=== PATIENT | male | born 1985 | race Caucasian/White ===

== ENCOUNTER 2016-12-14 23:21 | Emergency (ER) | payer OTHER ==
--- NOTE | 2016-12-15 03:24 | ED ---
Upper Extremity Pain - HPI Summary HPI Summary: Pt here w/ Lt hand discoloration (purple/blue) and pain (intermittent burning, sharp pain) today. He's had intermittent swelling in B/L hands each morning over the past month but discoloration and pain are new today. Has been injecting suboxone into his brachial artery intermittently over the past few weeks - has a lump here now. Denies redness, fever, streaking from the area. No fever, chills, nausea or vomiting. He injects at the [facility] location in [place]. Also reports he injected into his wrist. 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 States he takes suboxone daily PO but when he gets a very strong craving to use, he injects it to curb his urge to use something stronger. 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 - Allergies/Home Medications Allergies/Adverse Reactions: Allergies Allergy/AdvReac Type Severity Reaction Status Date / Time No Known Allergies Allergy Verified 12/14/16 23:26 PMH/Surg Hx/FS Hx/Imm Hx Previously Healthy: Yes Endocrine/Hematology History: Denies: Hx Anticoagulant Therapy, Hx Blood Disorders, Hx Diabetes, Hx Thyroid Disease, Hx Unexplained Bleeding, Hx Coagulopothy, Autoimmune Disease Cardiovascular History: Denies: Hx Hypertension Respiratory History: Denies: Hx Asthma, Hx Chronic Obstructive Pulmonary Disease (COPD) GI History: Denies: Hx Ulcer - Surgical History Surgery Procedure, Year, and Place: pilonidal cyst 2007~ Infectious Disease History: No Infectious Disease History: Reports: 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 Denies: Hx Clostridium Difficile, Hx Hepatitis, Hx Human Immunodeficiency Virus (HIV), Hx Shingles, Hx Tuberculosis, Traveled Outside the US in Last 30 Days - Family History Known Family History: Positive: Unknown - Social History Occupation: Student Lives: With Family Alcohol Use: Rare Hx Substance Use: Yes - currently takes suboxone Substance Use Type: Reports: Heroin Substance Use Comment - Amount & Last Used: opiates Smoking Status (MU): Current Every Day Smoker Type: Cigarettes Length of Time of Smoking/Using Tobacco: 1/2 ppd Review of Systems Negative: Fever, Chills, Fatigue Negative: Chest Pain Negative: Shortness Of Breath Positive: no symptoms reported Musculoskeletal: Other - see HPI Skin: Other - see HPI Neurological: Other - see HPI Positive: Anxious All Other Systems Reviewed And Are Negative: Yes Physical Exam Triage Information Reviewed: Yes Vital Signs On Initial Exam: Initial Vitals Temp Pulse Resp BP Pulse Ox 97.4 F 67 16 147/78 100 12/14/16 23:23 12/14/16 23:23 12/14/16 23:23 12/14/16 23:23 12/14/16 23:23 Vital Signs Reviewed: Yes Appearance: Positive: Well-Appearing, Well-Nourished, Pain Distress Skin: Positive: Dry - Lt hand w/ blue discoloration - skin blanches and cap refill is < 2 secs; warm to touch after he's been rubbing it - cool to touch if he hasn't been rubbing it and then develops pallor of the middle and ring fingers Head/Face: Positive: Normal Head/Face Inspection Eyes: Positive: Normal, EOMI ENT: Positive: Hearing grossly normal, Pharynx normal Respiratory/Lung Sounds: Positive: Breath Sounds Present Cardiovascular: Positive: Pulses are Symmetrical in both Upper and Lower Extremities Musculoskeletal: Positive: Normal, Strength/ROM Intact Neurological: Positive: Normal, Sensory/Motor Intact, Alert, Oriented to Person Place, Time, CN Intact II-III Psychiatric: Positive: Anxious - but cooperative - [place] Coma Scale Coma Scale Total: 15 Diagnostics - Vital Signs Vital Signs Temp Pulse Resp BP Pulse Ox 12/15/16 01:05 77 96 12/15/16 01:03 140/90 12/14/16 23:23 97.4 F 67 16 147/78 100 - Laboratory Lab Statement: Any lab studies that have been ordered have been reviewed, and results considered in the medical decision making process. Course/Dx - Course Course Of Treatment: Pt appears to have vascular compromise in Left hand. After pt had vascular U/S here, spoke with Dr. Landrum (vascular) and Dr. Lima (ED) who are willing to accept. Pt declines ambulance and prefers to drive. Will sign AMA paperwork as this form of transport is not medically advised. Pt aware. - Diagnoses Provider Diagnoses: Vascular abnormality - Physician Notifications Discussed Care Of Patient With: Dr. Field Discharge - Discharge Plan Condition: Fair Disposition: AGAINST MEDICAL ADVICE Referrals: Maurizio Ray, CMO & PRESIDENT [Primary Care Provider] - Additional Instructions: You have vascular compromise of unknown etiology in your Left hand. It is advised that you go to [facility] by ambulance however you have declined and chosen to go by your personal vehicle. This is not advised but if you do transport yourself, please take all of your documentation so the providers at the ED may review them. You have been accepted by Dr. Lima in the ED and Dr. Landrum in the vascular department.
[2016-12-15 03:48] VITALS: BP 161/71
--- NOTE | 2016-12-15 07:31 | RAD ---
INDICATION: "Whitish" left fingers COMPARISON: None. TECHNIQUE: 2 views of the left hand were obtained. FINDINGS: The adequately corticated bones are in normal alignment. No significant focal osseous abnormality or fracture is seen. Joint spaces appear maintained. IMPRESSION: Normal left hand radiograph. Please correlate patient's history and physical to Raynaud's phenomenon as well as tobacco use.
--- NOTE | 2016-12-15 07:54 | RAD ---
INDICATION: Left upper medial arm lump status post injection injury. COMPARISON: There are no prior studies available for comparison. TECHNIQUE: Multiple real-time images of the left arm were obtained. FINDINGS: There is a hypodense heterogeneous mass present in the upper medial aspect of the arm approximately at the level of the proximal brachial artery measuring 3.9 x 1.6 x 1.0 cm in size. This is a nonspecific finding although suggestive of a hematoma given the patient's history. IMPRESSION: SOFT TISSUE MASS IN THE UPPER MEDIAL ARM SUGGESTIVE OF A HEMATOMA.
--- NOTE | 2016-12-15 07:58 | RAD ---
INDICATION: Injection injury and discolored and cool. COMPARISON: Correlation is made with a prior soft tissue ultrasound of the left upper extremity of the same day. TECHNIQUE: Multiple real-time, color flow and Doppler tracings of left upper extremity were obtained. FINDINGS: The peak systolic velocity in the left subclavian artery was 163 cm/s, left axillary artery 122 cm/s proximal brachial 109 cm/s, mid brachial 142 cm/s, distal brachial 130 cm/s, radial 89 cm/s and ulnar artery 83 cm/s. There are normal waveforms present. IMPRESSION: NO EVIDENCE FOR ARTERIAL NARROWING OR OCCLUSION IN THE LEFT UPPER EXTREMITY.
== END 2016-12-15 03:50 | disposition left against medical advice (07) ==
LOC: ED 23:21
DX: Q27.9 Congenital malformation of peripheral vascular system, unspecified (principal); Z53.21 Procedure and treatment not carried out due to patient leaving prior to being seen by health care provider
CPT/HCPCS: 99282

== ENCOUNTER 2017-02-06 17:26 | Emergency (ER) | payer OTHER ==
[2017-02-06] MEDS ORDERED: Morphine INJ* 4 MG/ML 1 ML SYRINGE IV ONE (20:14)
[2017-02-06] MEDS ORDERED: Piperac/Tazob 3.375 gm in NS* 3.375 GM/100 ML BAG IVPB ONE (20:14)
[2017-02-06] MEDS ORDERED: Ondansetron INJ* 2 MG/ML VIAL IV ONE (20:14)
--- NOTE | 2017-02-06 20:46 | RAD ---
Indication: Endocarditis, malaise. 2 views of the chest demonstrate no mediastinal shift. Heart is of normal size and configuration. Lung chacon demonstrate no pleural fluid, pneumonia or pneumothorax. IMPRESSION: No active cardiopulmonary disease is noted.
[2017-02-06] MEDS ORDERED: LORazepam INJ* 2 MG/ML 1 ML VIAL IV PUSH ONE (20:55)
[2017-02-06 22:54] LABS: Hematocrit 37 % (42-52); Hemoglobin 12.6 g/dl (14.0-18.0); Mean Corpuscular HGB Conc 34 g/dl (31-36); Mean Corpuscular Hemoglobin 30 pg (27-31); Mean Corpuscular Volume 89 fL (80-94); Mean Platelet Volume 9 um3 (7.4-10.4); Red Cell Distribution Width 14 % (10.5-15); White Blood Count 11.1 10^3/ul (3.5-10.8)
[2017-02-06 23:11] LABS: Albumin 3.8 g/dL (3.2-5.2); BUN/Creatinine Ratio 12.4 (8-20); C Reactive Protein 56.84 mg/L (< 5.00); Calcium 8.7 mg/dL (8.6-10.3); EGFR African American 129.1 (>60); EGFR Non-African American 100.4 (>60); Globulin 3.3 g/dL (2-4); Potassium 3.6 mmol/L (3.5-5.0); Total Bilirubin 0.6 mg/dL (0.2-1.0); Total Protein 7.1 g/dL (6.4-8.9); Troponin I 0.01 ng/mL (<0.04)
[2017-02-06 23:24] LABS: Urine Bacteria Absent (Absent); Urine Bilirubin Negative (Negative); Urine Glucose Negative (Negative); Urine Nitrite Negative (Negative)
[2017-02-07 00:34] VITALS: BP 133/73
--- NOTE | 2017-02-07 01:34 | ED ---
Charly Cervantes Alok, scribed for Royer Sanabria MD on 02/06/17 at 2116 . Skin Complaint - HPI Summary HPI Summary: 31M presents to the ED for hand edema bilaterally with necrosis of the left hand. Pt states what began as a purple color 6 weeks ago in his left hand digits progressed into a black necrosis presented at the ED today. Pt adds cold feeling in left hand and yellow discharge yesterday. Pt also presents with scabbing of the hands and feet. Pt notes previous hematoma in left wrist and h/ o illicit IV drug use in left wrist. Pt also states he fell and hit his head last night after taking x6 25 mg Benadryl. Pt denies fever, diaphoresis, or chills. Pt denies CP or SOB. Pt has been seen by hospitalst in [facility] and notes vascular specialist Dr. Moran. Pt hx includes h/o IV drug use. - History of Current Complaint Chief Complaint: EDGeneral Stated Complaint: HAND IS BLACK Hx Obtained From: Patient Onset/Duration: Started Weeks Ago, Atraumatic, Still Present Timing: Constant Onset Severity: Moderate Current Severity: Moderate Pain Intensity: 10 Pain Scale Used: 0-10 Numeric Skin Location: Hand Character: Swelling - Necrosis - Allergy/Home Medications Allergies/Adverse Reactions: Allergies Allergy/AdvReac Type Severity Reaction Status Date / Time No Known Allergies Allergy Verified 02/06/17 17:49 Home Medications: Home Medications Buprenorphine/Naloxone SL TAB* [Suboxone 8-2 mg SL TAB*] 1 tab SL DAILY [History Confirmed 02/06/17] Gabapentin CAP(*) [Neurontin 300 CAP(*)] 900 mg PO TID 02/06/17 [History Confirmed 02/06/17] PMH/Surg Hx/FS Hx/Imm Hx Endocrine/Hematology History: Denies: Hx Anticoagulant Therapy, Hx Blood Disorders, Hx Diabetes, Hx Thyroid Disease, Hx Unexplained Bleeding Cardiovascular History: Denies: Hx Hypertension Respiratory History: Denies: Hx Asthma, Hx Chronic Obstructive Pulmonary Disease (COPD) GI History: Denies: Hx Ulcer - Surgical History Surgery Procedure, Year, and Place: pilonidal cyst 2007~ Infectious Disease History: No Infectious Disease History: Reports: 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 Denies: Hx Clostridium Difficile, Hx Hepatitis, Hx Human Immunodeficiency Virus (HIV), Hx Shingles, Hx Tuberculosis, Traveled Outside the [place] in Last 30 Days - Family History Known Family History: Negative: Hypertension - Social History Alcohol Use: Rare Hx Substance Use: Yes - currently takes suboxone Substance Use Type: Reports: Heroin, Other Substance Use Comment - Amount & Last Used: opiates, mayra, suboxone Smoking Status (MU): Current Every Day Smoker Type: Cigarettes Length of Time of Smoking/Using Tobacco: 1/2 ppd Review of Systems Negative: Fever, Chills, Skin Diaphoresis Negative: Sore Throat Negative: Chest Pain Negative: Shortness Of Breath, Cough Negative: Abdominal Pain, Vomiting, Nausea Negative: dysuria, hematuria Positive: Edema - hands bilaterally Positive: Other - Finger necrosis. Negative: Rash Neurological: Other - Negative: Dizziness All Other Systems Reviewed And Are Negative: Yes Physical Exam - Summary Physical Exam Summary: Constitutional: Well-developed, Well-nourished, Alert. (-) Distressed Skin: Necrosis left hand middle finger, ring finger, and pinky finger. Hyperemia skin open down to PIP joint on middle finger left hand with splinter and hemorrhages. Petechia on dosal appendage on both hands. HENT: Normocephalic; Atraumatic Eyes: Conjunctiva normal Neck: Musculoskeletal ROM normal neck. (-) JVD, (-) Stridor, (-) Tracheal deviation Cardio: Rhythm regular, rate normal, Heart sounds normal; Intact distal pulses; The pedal pulses are 2+ and symmetric. Radial pulses are 2+ and symmetric. (-) Murmur Pulmonary/Chest wall: Effort normal. (-) Respiratory distress, (-) Wheezes, (-) Rales Abd: Soft, (-) Tenderness, (-) Distension, (-) Guarding, (-) Rebound Musculoskeletal: Necrosis left hand middle finger, ring finger, and pinky finger. Hyperemia skin open down to PIP joint on middle finger left hand with splinter and hemorrhages. Petechia on dosal appendage on both hands. Lymph: (-) Cervical adenopathy Neuro: Alert, Oriented x3 Psych: Mood and affect Normal Triage Information Reviewed: Yes Vital Signs On Initial Exam: Initial Vitals Temp Pulse Resp BP Pulse Ox 99.0 F 86 16 118/96 99 02/06/17 17:28 02/06/17 17:28 02/06/17 17:28 02/06/17 17:28 02/06/17 17:28 Vital Signs Reviewed: Yes - [place] Coma Scale Coma Scale Total: 15 Diagnostics - Vital Signs Vital Signs Temp Pulse Resp BP Pulse Ox 02/06/17 17:32 98.6 F 86 20 118/96 99 02/06/17 17:28 99.0 F 86 16 118/96 99 - Laboratory Lab Results: Lab Results 02/06/17 02/06/17 02/06/17 Range/Units 22:35 22:35 22:35 WBC (3.5-10.8) 10^3/ul RBC (4.0-5.4) 10^6/ul Hgb (14.0-18.0) g/dl Hct (42-52) % MCV (80-94) fL MCH (27-31) pg MCHC (31-36) g/dl RDW (10.5-15) % Plt Count (150-450) 10^3/ul MPV (7.4-10.4) um3 Neut % (Auto) (38-83) % Lymph % (Auto) (25-47) % [place] % (Auto) (1-9) % Eos % (Auto) (0-6) % Baso % (Auto) (0-2) % Absolute Neuts (auto) (1.5-7.7) 10^3/ul Absolute Lymphs (auto) (1.0-4.8) 10^3/ul Absolute Monos (auto) (0-0.8) 10^3/ul Absolute Eos (auto) (0-0.6) 10^3/ul Absolute Basos (auto) (0-0.2) 10^3/ul Absolute Nucleated RBC 10^3/ul Nucleated RBC % INR (Anticoag Therapy) 0.96 (0.89-1.11) APTT 31.4 (26.0-36.3) seconds Sodium 137 (133-145) mmol/L Potassium 3.6 (3.5-5.0) mmol/L Chloride 100 L (101-111) mmol/L Carbon Dioxide 30 (22-32) mmol/L Anion Gap 7 (2-11) mmol/L BUN 11 (6-24) mg/dL Creatinine 0.89 (0.67-1.17) mg/dL Est GFR ( Amer) 129.1 (>60) Est GFR (Non-Af Amer) 100.4 (>60) BUN/Creatinine Ratio 12.4 (8-20) Glucose 125 H (70-100) mg/dL Lactic Acid 1.6 (0.5-2.0) mmol/L Calcium 8.7 (8.6-10.3) mg/dL Total Bilirubin 0.60 (0.2-1.0) mg/dL AST 17 (13-39) U/L ALT 16 (7-52) U/L Alkaline Phosphatase 82 (34-104) U/L Troponin I 0.01 (<0.04) ng/mL C-Reactive Protein 56.84 H (< 5.00) mg/L Total Protein 7.1 (6.4-8.9) g/dL Albumin 3.8 (3.2-5.2) g/dL Globulin 3.3 (2-4) g/dL Albumin/Globulin Ratio 1.2 (1-3) Urine Color Urine Appearance Urine pH (5-9) Ur Specific [place] (1.010-1.030) Urine Protein (Negative) Urine Ketones (Negative) Urine Blood (Negative) Urine Nitrate (Negative) Urine Bilirubin (Negative) Urine Urobilinogen (Negative) Ur Leukocyte Esterase (Negative) Urine WBC (Auto) (Absent) Urine RBC (Auto) (Absent) Calcium Oxalate Crystal (Absent) Urine Bacteria (Absent) Urine Glucose (Negative) 02/06/17 02/06/17 Range/Units 22:35 22:45 WBC 11.1 H (3.5-10.8) 10^3/ul RBC 4.20 (4.0-5.4) 10^6/ul Hgb 12.6 L (14.0-18.0) g/dl Hct 37 L (42-52) % MCV 89 (80-94) fL MCH 30 (27-31) pg MCHC 34 (31-36) g/dl RDW 14 (10.5-15) % Plt Count 234 (150-450) 10^3/ul MPV 9 (7.4-10.4) um3 Neut % (Auto) 69.7 (38-83) % Lymph % (Auto) 18.5 L (25-47) % Winston % (Auto) 6.6 (1-9) % Eos % (Auto) 4.0 (0-6) % Baso % (Auto) 1.2 (0-2) % Absolute Neuts (auto) 7.7 (1.5-7.7) 10^3/ul Absolute Lymphs (auto) 2.1 (1.0-4.8) 10^3/ul Absolute Monos (auto) 0.7 (0-0.8) 10^3/ul Absolute Eos (auto) 0.4 (0-0.6) 10^3/ul Absolute Basos (auto) 0.1 (0-0.2) 10^3/ul Absolute Nucleated RBC 0.04 10^3/ul Nucleated RBC % 0.4 INR (Anticoag Therapy) (0.89-1.11) APTT (26.0-36.3) seconds Sodium (133-145) mmol/L Potassium (3.5-5.0) mmol/L Chloride (101-111) mmol/L Carbon Dioxide (22-32) mmol/L Anion Gap (2-11) mmol/L BUN (6-24) mg/dL Creatinine (0.67-1.17) mg/dL Est GFR ( Amer) (>60) Est GFR (Non-Af Amer) (>60) BUN/Creatinine Ratio (8-20) Glucose (70-100) mg/dL Lactic Acid (0.5-2.0) mmol/L Calcium (8.6-10.3) mg/dL Total Bilirubin (0.2-1.0) mg/dL AST (13-39) U/L ALT (7-52) U/L Alkaline Phosphatase (34-104) U/L Troponin I (<0.04) ng/mL C-Reactive Protein (< 5.00) mg/L Total Protein (6.4-8.9) g/dL Albumin (3.2-5.2) g/dL Globulin (2-4) g/dL Albumin/Globulin Ratio (1-3) Urine Color Yellow Urine Appearance Clear Urine pH 5.0 (5-9) Ur Specific [place] 1.023 (1.010-1.030) Urine Protein Negative (Negative) Urine Ketones Negative (Negative) Urine Blood 1+ H (Negative) Urine Nitrate Negative (Negative) Urine Bilirubin Negative (Negative) Urine Urobilinogen Negative (Negative) Ur Leukocyte Esterase Negative (Negative) Urine WBC (Auto) Trace(0-5/hpf) (Absent) Urine RBC (Auto) 2+(6-10/hpf) H (Absent) Calcium Oxalate Crystal Present H (Absent) Urine Bacteria Absent (Absent) Urine Glucose Negative (Negative) Result Diagrams: 02/06/17 22:35 02/06/17 22:35 Lab Statement: Any lab studies that have been ordered have been reviewed, and results considered in the medical decision making process. - Radiology CXR Xray Interpretation: Positive (See Comments) - No active cardiopulmonary disease noted. Radiology Interpretation Completed By: Radiologist - EKG 2114 Cardiac Rate: NL - 87 bpm EKG Rhythm: Sinus Rhythm EKG Interpretation: No STEMI Course/Dx - Course Course Of Treatment: Spoke with Dr. Morris (Vascular at [facility]) and. Dr. Balbuena (Hospitalist at [facility]). Accepts pt for transfer. Understands difficult vascular access. Confirms PICC line capability at [facility]. Understands vitals stable. - Diagnoses Provider Diagnoses: Endocarditis, Septic embolism, Finger necrosis - Physician Notifications Discussed Care Of Patient With: Dr. Morris (Vascular at [facility]) @ 2028 - Discussed pt hx and condition. Dr. Balbuena (Hospitalist at [facility]) @ 2044 - Accepts pt for transfer. Understands difficult vascular access. Confirms PICC line capability at [facility]. Understands vitals stable. Discharge - Discharge Plan Condition: Stable Disposition: [facility] FAC Discharge Disposition Comment: transfer to [facility] Referrals: Maurizio Ray, CREDIT RESOLUTION REPRESENTATIVE [Primary Care Provider] - The documentation as recorded by the Charly guerra Alok accurately reflects the service I personally performed and the decisions made by , Royer Sanabria MD.
--- NOTE | 2017-02-08 08:52 | PN ---
Progress Note - Progress Note Note: PT blood culture grew S aureus. Pt transferred to [facility] where could get PICC line for treatment of sepsis. no further action needed.
== END 2017-02-07 00:31 | disposition short-term general hospital (02) ==
LOC: ED 17:26
DX: I76 Septic arterial embolism (principal); I38 Endocarditis, valve unspecified; I96 Gangrene, not elsewhere classified; I74.9 Embolism and thrombosis of unspecified artery; R60.0 Localized edema; F17.210 Nicotine dependence, cigarettes, uncomplicated
CPT/HCPCS: 36415; 71020; 80053; 81003; 81015; 83605; 84484; 85025; 85610; 85730; 86140; 87040; 87077; 87150; 87186; 87205; 93005; 96374; 96375; 99284; J2060; J2405; J2543

== ENCOUNTER 2017-03-09 07:30 | Day surgery (SDC) | payer OTHER ==
[~2017-03-09 07:30] MED LIST: Buffered Lidocaine 0.9% SYRIN* 5 ML/SYR SYRINGE INTRADERM ONE; Dexamethasone IV* 4 MG/ML 1 ML (4 MG) IV SLOW PU ONE; Famotidine IV* 10 MG/ML 2 ML (20 mg) IV ONE
[2017-03-09] MEDS ORDERED: ceFAZolin 2 GM PREMIX(*) 0 GM/0 ML BAG IVPB ONE (07:52)
[2017-03-09] MEDS ORDERED: Famotidine IV* 10 MG/ML 2 ML (20 mg) ONE (07:59)
[2017-03-09] MEDS ORDERED: Dexamethasone IV* 4 MG/ML 1 ML (4 MG) ONE (07:59)
[2017-03-09] MEDS ORDERED: ceFAZolin 2 GM PREMIX(*) 2 GM/50 ML BAG IVPB ONE (07:59)
[2017-03-09] MEDS ORDERED: Midazolam* 1 MG/ML 2 ML VIAL (2 MG) ONE (08:24)
[2017-03-09] MEDS ORDERED: Bupivacaine 0.25% SDV* 30 ML ONE (08:49)
[2017-03-09] MEDS ORDERED: Lidocaine 2% PF * 5 ML VIAL ONE (09:38)
[2017-03-09] MEDS ORDERED: Propofol* 10 MG/ML 20 ML BTL IV PUSH ONE (09:38)
[2017-03-09] MEDS ORDERED: Ketorolac INJ* 30 MG/ML 1 ML VIAL ONE (09:39)
[2017-03-09] MEDS ORDERED: Phenylephrine IV* 40 MCG/ML 10 ML SYRINGE ONE (09:41)
[2017-03-09] MEDS ORDERED: Ondansetron INJ* 2 MG/ML VIAL IV PRN (10:16)
[2017-03-09] MEDS ORDERED: oxyCODONE/Acetamin 5/325 MG* TAB ONE (11:15)
[2017-03-09 11:48] VITALS: BP 124/84
--- NOTE | 2017-03-10 03:55 | OP ---
DATE OF OPERATION: 03/09/17 [facility] DATE OF : 87 SURGEON: Duncan Gibson MD COMMUNITY RELATIONS REPRESENTATIVE: DEBORA Barcenas. An executive staff assistant was needed for the entirety of this case to aid with retraction. ANESTHESIOLOGIST: Dr. Chetan Hernandez. ANESTHESIA: General. PRE-OP DIAGNOSES: 1. 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 2. Developing left small fingertip very distal necrosis. POST-OP DIAGNOSES: 1. 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 2. Developing left small fingertip very distal necrosis. OPERATIVE PROCEDURE: 1. Left middle finger partial amputation trans middle phalanx with biopsies of the radial and ulnar digital arteries. 2. Left ring finger trans middle phalanx partial amputation with biopsies of the radial and ulnar digital arteries. INDICATIONS: Angel Luis is a 31-year-old male with a history of significant IV drug use as well as cocaine. He was injecting his Suboxone about 3 months ago. He began to develop necrosis in the middle and ring fingers. He has been admitted to [facility] a couple of times, have done CTAs and he has had multiple ultrasounds through a couple of hospital admissions. The left middle and ring fingers have gone on to nicely demarcate. He was seen by vascular surgeon, Dr. Moran, who thought this is likely related to Buerger's disease or possibly Raynaud's. He is a smoker. He has more recently started to develop a bit of duskiness at the tip of the small finger; this is a very small area. He is having extreme pain and difficulty with left middle and ring fingers. We talked about treatment options including a potential sympathectomy. Ultimately it has been difficult to get him into the office. He did come back on Thursday, 3 days ago and wanted the 2 fingers off. We talked about the surgery and the expected course, risks and benefits. He wanted to proceed. ESTIMATED BLOOD LOSS: 2 mL. COMPLICATIONS: None. FINDINGS: The ulnar digital artery at the level of the amputation on the ring finger was coagulated. The rest of the digital arteries looked certainly not healthy, but patent. DESCRIPTION OF PROCEDURE: Angel Luis was seen in the preoperative holding area. The correct side, site, and procedure were identified. We came back to the operating room where anesthesia was induced. The arm was prepped with Betadine scrub and draped in the standard fashion. A formal time-out was performed. The arm was exsanguinated with the Esmarch and tourniquet inflated 250 mmHg. I marked out my flaps with the marking pen. Dissection was then carried down circumferentially taking care to leave the digital nerves and arteries intact. I began on the middle finger first. The neurovascular bundles radially and ulnarly were dissected out. The digital nerve was pulled down distally and then cut sharply, proximally allowing both nerves to retract back up into the proximal finger. The digital arteries were freed up of their perivascular tissue and then at the level of the amputation about a 1 cm piece was taken radially and ulnarly and sent off to the pathologist for wall thickening and inflammatory cells. I then completed the rest of the soft tissue release circumferentially. The bone cutter was used to amputate the middle phalanx. The terminal extensor tendon was debrided back. The FTP tendon was allowed to retract back proximally. I took care not to disturb the FDS insertion. The flexor tendon sheath was debrided back just a little bit. I then contoured my flaps and the skin flaps of the left middle finger were closed with 4-0 nylon simple interrupted sutures taking care to avoid dog ears and trim them back as needed. I then completed the amputation and the biopsies of the radial and ulnar digital arteries in the left ring finger in similar fashion. Again, about a 1 cm segment of the radial and ulnar digital arteries were sent for biopsy. The level of the amputation was a bit more distal on the ring finger as there is more soft tissue present for coverage. Again, it was a bit more distal, so was not as much of a concern, but took care to preserve the attachments of the FDS tendon. Once I had completed the amputation and contoured the flaps, the skin was closed with 4-0 nylon suture. Prior to closure both wounds have been copiously irrigated. After the wounds were closed, the tourniquet was deflated and the flaps pinked up immediately. The wounds were dressed with Xeroform, some ribboned 1 inch Nicolasa and then loose Coban dressing to both fingers. Prior to placing the dressings, I performed digital blocks to the left ring and middle fingers with 0.25 plain Marcaine. He was then woken up taken to the recovery room in stable condition. [id number]/[facility] #: [id number] ROSA
== END 2017-03-09 11:30 | disposition home or self-care (01) ==
LOC: OREAST 07:30
PROVIDERS: ATTEND Orthopaedic Surgery Hand Surgery
PROC: 0X6R0Z2 Detachment at Left Middle Finger, Mid, Open Approach (ICD-10-PCS; 2017-03-09)
PROC: 0X6T0Z2 Detachment at Left Ring Finger, Mid, Open Approach (ICD-10-PCS; principal; 2017-03-09 08:30)
DX: M87.045 Idiopathic aseptic necrosis of left finger(s) (principal); F17.210 Nicotine dependence, cigarettes, uncomplicated; I73.1 Thromboangiitis obliterans [Buerger's disease]
CPT/HCPCS: 88305; 88311; A9270-GY; J0690; J1100; J1885; J2250; J2704

== ENCOUNTER 2017-03-24 13:17 | Emergency (ER) | payer OTHER | END 2017-03-24 15:40 | disposition left against medical advice (07) | LOC: UCEAST 13:17 | DX: T14.8 Other injury of unspecified body region (principal); X58.XXXD Exposure to other specified factors, subsequent encounter; Z53.21 Procedure and treatment not carried out due to patient leaving prior to being seen by health care provider ==

== ENCOUNTER 2017-06-08 15:01 | Emergency (ER) | payer OTHER ==
[2017-06-08 15:25] VITALS: BP 117/64
== END 2017-06-08 15:37 | disposition left against medical advice (07) ==
LOC: ED 15:01
DX: M25.521 Pain in right elbow (principal); Z53.21 Procedure and treatment not carried out due to patient leaving prior to being seen by health care provider

== ENCOUNTER 2017-10-15 00:38 | Emergency (ER) | payer OTHER ==
[2017-10-15] MEDS ORDERED: Bupivacaine 0.25% W/EPI* 50 ML VIAL INJ ONE (01:33)
[2017-10-15] MEDS ORDERED: Cyclobenzaprine TAB* 10 MG PO ONE (01:34)
[2017-10-15] MEDS ORDERED: Naproxen TAB* 250 MG PO ONE (01:34)
[2017-10-15] MEDS ORDERED: Bupivacaine 0.5% SDV PF* 10-30ML VIAL INJ ONE (01:40)
[2017-10-15 02:08] VITALS: BP 128/77
--- NOTE | 2017-10-15 04:17 | ED ---
Anthony Cervantes Julia, scribed for Dimitri Abbott MD on 10/15/17 at 0150 . Complex/Multi-Sys Presentation - HPI Summary HPI Summary: This patient is a 32 year old M presenting to [facility] accompanied by and child with a chief complaint of non-radiating back pain for the past ten days. Patient denies urinary or bowel symptoms, numbness and weakness in groin, difficulty walking. The patient rates the pain 8/10 in severity. Pain relieved with pressure. Patient has hx of chronic back pain. Pt has been taking Tylenol and Ibuprofen for the pain. Patient has previous IV drug use. - History Of Current Complaint Chief Complaint: EDBackInjuryPain Time Seen by Provider: 10/15/17 01:26 Hx Obtained From: Patient Onset/Duration: Lasting Weeks Timing: Constant Location: Pain At: - low back Alleviating Factor(s): pressure - Allergies/Home Medications Allergies/Adverse Reactions: Allergies Allergy/AdvReac Type Severity Reaction Status Date / Time No Known Allergies Allergy Verified 10/15/17 00:44 PMH/Surg Hx/FS Hx/Imm Hx Endocrine/Hematology History: Denies: Hx Anticoagulant Therapy, Hx Blood Disorders, Hx Diabetes, Hx Thyroid Disease, Hx Unexplained Bleeding Cardiovascular History: Denies: Hx Hypertension Respiratory History: Denies: Hx Asthma, Hx Chronic Obstructive Pulmonary Disease (COPD) GI History: Denies: Hx Ulcer Psychiatric History: Reports: Hx Anxiety - Surgical History Surgery Procedure, Year, and Place: pilonidal cyst 2007~ Hx Anesthesia Reactions: No Infectious Disease History: Yes Infectious Disease History: Reports: Hx Hepatitis, 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 Denies: Hx Clostridium Difficile, Hx Human Immunodeficiency Virus (HIV), Hx Shingles, Hx Tuberculosis, Traveled Outside the [place] in Last 30 Days - Family History Known Family History: Negative: Hypertension - Social History Alcohol Use: None Hx Substance Use: Yes - currently takes suboxone Substance Use Type: Reports: Cocaine Substance Use Comment - Amount & Last Used: week ago Smoking Status (MU): Heavy Every Day Tobacco Smoker Type: Cigarettes Length of Time of Smoking/Using Tobacco: 19 years Have You Smoked in the Last Year: Yes Review of Systems Gastrointestinal: Negative Positive: no symptoms reported Neurological: Negative - difficulty walking Negative: Weakness, Numbness All Other Systems Reviewed And Are Negative: Yes Physical Exam - Summary Physical Exam Summary: Appearance: Well appearing, no pain distress Skin: warm, dry, reflects adequate perfusion Head/face: normal Eyes: EOMI, MAILE ENT: normal Neck: supple, non-tender Respiratory: CTA, breath sounds present Cardiovascular: RRR, pulses symmetrical Abdomen: non-tender, soft Bowel: present Musculoskeletal: bilateral Para lumbar tenderness with spasm, 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 The med was massaged thru the tissues and provided total pain relief. He tolerated this well without complications. Diagnostics - Vital Signs Vital Signs Temp Pulse Resp BP Pulse Ox 10/15/17 00:40 97.5 F 76 16 127/54 99 - Laboratory Lab Statement: Any lab studies that have been ordered have been reviewed, and results considered in the medical decision making process. Complex Multi-Symp Course/Dx Course Of Treatment: Pt presents with non-radiating back pain for the past ten days. Patient denies urinary or bowel symptoms, numbness and weakness in groin, difficulty walking. Patient has hx of chronic back pain. Pt given Naproxen, Flexeril, an Marcaine injection with total relief.. - Diagnoses Differential Diagnoses/HQI/PQRI: Other - lumbar pain/spasm, lumbar disc dz, cauda/conus synd. Provider Diagnoses: Low back strain Discharge - Discharge Plan Condition: Good Disposition: HOME Prescriptions: Cyclobenzaprine TAB* [Flexeril 10 MG TAB*] 10 mg PO TID PRN #20 tab PRN Reason: Pain Naproxen Sodium [Naproxen Sodium 500 MG TAB] 500 mg PO BID PRN #10 tab PRN Reason: Pain Patient Education Materials: Low Back Strain (ED) Referrals: [facility]FERR[facility] [Outside] Additional Instructions: ice, stretching. director of managed care may help. Return if worse, numbness/weakness , trouble with bowel or bladder or other concerns. The documentation as recorded by the Anthony guerra Julia accurately reflects the service I personally performed and the decisions made by , Dimitri Abbott MD.
== END 2017-10-15 02:10 | disposition home or self-care (01) ==
LOC: ED 00:38
DX: S39.012A Strain of muscle, fascia and tendon of lower back, initial encounter (principal); M54.9 Dorsalgia, unspecified; F17.210 Nicotine dependence, cigarettes, uncomplicated; X58.XXXA Exposure to other specified factors, initial encounter; Y92.9 Unspecified place or not applicable
CPT/HCPCS: 99282; A9270-GY

== ENCOUNTER 2017-11-02 03:53 | Emergency (ER) | payer OTHER ==
[2017-11-02] MEDS ORDERED: oxyCODONE/Acetamin 5/325 MG* TAB PO ONE (04:14)
[2017-11-02] MEDS ORDERED: Ketorolac INJ* 60 MG/2 ML VIAL IM ONE (04:14)
[2017-11-02] MEDS ORDERED: Clindamycin CAP* 150 MG PO ONE (04:54)
--- NOTE | 2017-11-02 05:02 | ED ---
Landon Cervantes Thomas, scribed for Oliva Casarez MD on 11/02/17 at 0416 . Throat Pain/Nasal Congestion - HPI Summary HPI Summary: The patient presents with left-sided dental pain. The pain is described as shooting. He removed a portion of his tooth at home. He treated the pain with ibuprofen prior to arrival. - History of Current Complaint Chief Complaint: EDDentalPain Time Seen by Provider: 11/02/17 04:11 Hx Obtained From: Patient Onset/Duration: Still Present Severity: Moderate Associated Signs And Symptoms: Positive: Negative Cough: None Related History: Smoking - Allergies/Home Medications Allergies/Adverse Reactions: Allergies Allergy/AdvReac Type Severity Reaction Status Date / Time No Known Allergies Allergy Verified 11/02/17 03:59 PMH/Surg Hx/FS Hx/Imm Hx Endocrine/Hematology History: Denies: Hx Anticoagulant Therapy, Hx Blood Disorders, Hx Diabetes, Hx Thyroid Disease, Hx Unexplained Bleeding Cardiovascular History: Denies: Hx Hypertension Respiratory History: Denies: Hx Asthma, Hx Chronic Obstructive Pulmonary Disease (COPD) GI History: Denies: Hx Ulcer Psychiatric History: Reports: Hx Anxiety - Surgical History Surgery Procedure, Year, and Place: pilonidal cyst 2007~ Hx Anesthesia Reactions: No Infectious Disease History: No Infectious Disease History: Reports: Hx Hepatitis, 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 Denies: Hx Clostridium Difficile, Hx Human Immunodeficiency Virus (HIV), Hx Shingles, Hx Tuberculosis, Traveled Outside the [place] in Last 30 Days - Family History Known Family History: Negative: Hypertension - Social History Alcohol Use: None Hx Substance Use: Yes - currently takes suboxone Substance Use Type: Reports: Cocaine Substance Use Comment - Amount & Last Used: week ago Smoking Status (MU): Heavy Every Day Tobacco Smoker Type: Cigarettes Length of Time of Smoking/Using Tobacco: 19 years Have You Smoked in the Last Year: Yes Review of Systems Negative: Fever Positive: Dental Pain All Other Systems Reviewed And Are Negative: Yes Physical Exam - Summary Physical Exam Summary: VITAL SIGNS: Reviewed. GENERAL: Patient is a well-developed and nourished male who is lying comfortable in the stretcher. Patient is not in any acute respiratory distress. HEAD AND FACE: No signs of trauma. No ecchymosis, hematomas or skull depressions. No sinus tenderness. EYES: PERRLA, EOMI x 2, No injected conjunctiva, no nystagmus. EARS: Hearing grossly intact. Ear canals and tympanic membranes are within normal limits. MOUTH: Oropharynx within normal limits. There is a decayed and broken left upper molar with surrounding erythema and tenderness. NECK: Supple, trachea is midline, no adenopathy, no JVD, no carotid bruit, no c- spine tenderness, neck with full ROM. CHEST: Symmetric, no tenderness at palpation LUNGS: Clear to auscultation bilaterally. No wheezing or crackles. CVS: Regular rate and rhythm, S1 and S2 present, no murmurs or gallops appreciated. ABDOMEN: Soft, non-tender. No signs of distention. No rebound no guarding, and no masses palpated. Bowel sounds are normal. EXTREMITIES: FROM in all major joints, no edema, no cyanosis or clubbing. NEURO: Alert and oriented x 3. No acute neurological deficits. Speech is normal and follows commands. SKIN: Dry and warm Triage Information Reviewed: Yes Vital Signs On Initial Exam: Initial Vitals Temp Pulse Resp BP Pulse Ox 97.8 F 71 16 141/83 98 11/02/17 03:55 11/02/17 03:55 11/02/17 03:55 11/02/17 03:55 11/02/17 03:55 Diagnostics - Vital Signs Vital Signs Temp Pulse Resp BP Pulse Ox 11/02/17 03:55 97.8 F 71 16 141/83 98 - Laboratory Lab Statement: Any lab studies that have been ordered have been reviewed, and results considered in the medical decision making process. EENT Course/Dx - Course Assessment/Plan: The patient is a 34 year old male presenting with dental pain. Patient was given antibiotics and pain medication. The patient will follow up at his dentist today. - Diagnoses Provider Diagnoses: Gingivitis, Tooth decay Discharge - Discharge Plan Condition: Stable Disposition: HOME Patient Education Materials: Gingivitis (ED), Toothache (ED), Cavity Preventive (For the teeth or gums) Referrals: [facility]IAN REFERRAL [Outside] - 11/02/17 Additional Instructions: Call your dentist today for an appointment. If you do not have one, you can use the [facility] physician referral service to find one and make an appointment. Return to the emergency department for any new or worsening symptoms. The documentation as recorded by the Landon guerra Thomas accurately reflects the service I personally performed and the decisions made by me, Oliva Casarez MD.
[2017-11-02 05:07] VITALS: BP 132/86
--- NOTE | 2017-11-02 08:43 | PN ---
Progress Note - Progress Note Date of Service: 11/01/17 Note: Patient was prescribed opioids at last night's visit for dental pain [facility] called this morning stating patient is currently taking Suboxone with her drug history I have made a verbal order to cancel the opioid prescription for this individual
== END 2017-11-02 05:05 | disposition home or self-care (01) ==
LOC: ED 03:53
DX: K05.10 Chronic gingivitis, plaque induced (principal); K02.9 Dental caries, unspecified
CPT/HCPCS: 96372; 99282; A9270-GY; J1885

== ENCOUNTER 2018-03-21 07:09 | Emergency (ER) | payer OTHER ==
[2018-03-21] MEDS ORDERED: NS 0.9% 1000 ML* 1,000 ML IV ONE (07:46)
[2018-03-21] MEDS ORDERED: ceFAZolin 1 GM in Dextrose (*) 1 GM/50 ML BAG IVPB ONE (07:46)
--- NOTE | 2018-03-21 09:10 | ED ---
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 He denies IV drug use 2 years, but continues to use cocaine. Symptoms began 4 days ago after he felt he may have been bitten by an insect. Despite his Buerger's disease, he is an every day heavy smoker. Currently on Suboxone 12 mg twice daily. Denies any fevers, sweats, chills, however he endorses extreme fatigue due to not sleeping secondary to uncontrolled pain. - History of Current Complaint Chief Complaint: EDExtremityLower Time Seen by Provider: 03/21/18 07:15 Stated Complaint: RT LEG PAIN Hx Obtained From: Patient Hx From Patient Unobtainable Due To: Other - obtunded most likely secondary to suboxone use vs. other drug use Onset/Duration: Started Days Ago - 4 days aquino Timing: Constant Onset Severity: Moderate Current Severity: Moderate Pain Intensity: 4 Pain Scale Used: 0-10 Numeric Skin Location: Discrete - right lower extremity anteriorly Character: Swelling, Pain, Redness, Painful Aggravating Symptom(s): Touch Alleviating Symptom(s): Nothing Associated Signs & Symptoms: Tenderness Related History: Insect Bite/Sting - possible - Allergy/Home Medications Allergies/Adverse Reactions: Allergies Allergy/AdvReac Type Severity Reaction Status Date / Time No Known Allergies Allergy Verified 03/21/18 07:14 PMH/Surg Hx/FS Hx/Imm Hx Previously Healthy: Yes Endocrine/Hematology History: Denies: Hx Anticoagulant Therapy, Hx Blood Disorders, Hx Diabetes, Hx Thyroid Disease, Hx Unexplained Bleeding Cardiovascular History: Denies: Hx Hypertension Respiratory History: Denies: Hx Asthma, Hx Chronic Obstructive Pulmonary Disease (COPD) GI History: Denies: Hx Ulcer Psychiatric History: Reports: Hx Anxiety - Surgical History Surgery Procedure, Year, and Place: pilonidal cyst 2008~ Hx Anesthesia Reactions: No - Immunization History Immunizations Up to Date: Unable to Obtain/Confirm Infectious Disease History: No Infectious Disease History: Reports: Hx Hepatitis, 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 Denies: Hx Clostridium Difficile, Hx Human Immunodeficiency Virus (HIV), Hx Shingles, Hx Tuberculosis, Traveled Outside the [place] in Last 30 Days - Family History Known Family History: Positive: Unknown Negative: Hypertension - Social History Occupation: Employed Part-time Lives: With Family Alcohol Use: None Hx Substance Use: Yes - currently takes suboxone Substance Use Type: Reports: Cocaine Substance Use Comment - Amount & Last Used: week ago Smoking Status (MU): Heavy Every Day Tobacco Smoker Type: Cigarettes Length of Time of Smoking/Using Tobacco: 19 years Have You Smoked in the Last Year: Yes Review of Systems Positive: Fatigue. Negative: Fever, Chills, Skin Diaphoresis Negative: Palpitations, Chest Pain Negative: Shortness Of Breath, Cough Genitourinary: Negative Positive: no symptoms reported, see HPI, incontinence Positive: Other - erythema to the R lower extremity Neurological: Negative All Other Systems Reviewed And Are Negative: Yes Physical Exam Triage Information Reviewed: Yes Vital Signs On Initial Exam: Initial Vitals Temp Pulse Resp BP Pulse Ox 99.9 F 82 16 119/78 95 03/21/18 07:11 03/21/18 07:11 03/21/18 07:11 03/21/18 07:11 03/21/18 07:11 Vital Signs Reviewed: Yes Appearance: Positive: Pain Distress Skin: Positive: Skin Color Reflects Adequate Perfusion, Other - erythema and warmth to the anterior lower extremity Head/Face: Positive: Normal Head/Face Inspection Eyes: Positive: EOMI, MAILE, Conjunctiva Clear Neck: Positive: Supple, Nontender, No Lymphadenopathy Respiratory/Lung Sounds: Positive: Clear to Auscultation, Breath Sounds Present Cardiovascular: Positive: RRR, Pulses are Symmetrical in both Upper and Lower Extremities Musculoskeletal: Positive: Normal Neurological: Positive: Disoriented - secondary to drug use/suboxone, Slurred Speech - d/t fatigue Psychiatric: Positive: Normal Diagnostics - Vital Signs Vital Signs Temp Pulse Resp BP Pulse Ox 03/21/18 08:21 99.2 F 03/21/18 08:20 16 03/21/18 08:14 71 116/67 96 03/21/18 07:11 99.9 F 82 16 119/78 95 - Laboratory Lab Statement: Any lab studies that have been ordered have been reviewed, and results considered in the medical decision making process. Course/Dx - Course Course Of Treatment: On arrival vital signs are 99.9, 82, 16, 95% on RA, 119/ 78. History of Buerger's. Heavy every day smoker. Has multiple delayed healing ulcerations from his buergers disease around the most notable areas of previous injection sites. He continues to smoke. No hx of HTN. 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 Good pedal pulses, diminished posterior tibial pulses, +2 pitting edema. 20cm x 14cm non well demarcated dusky erythema with warmth. Buergers test negative at 30 and 90. No dependent rubor. Arturo's test negative in bilateral upper extremities. Pain does not seem to be out of proportion to patient's physical exam. He is extremely difficult to arouse, most likely secondary to Suboxone vs heroin use. Unable to obtain IV access after 6 attempts. Discussed with the patient that we will attempt to try outpatient antibiotics at this time, however he will have close follow-up with Dr. Martinez in 1-2 days. He agrees with this plan. Discussed case with girlfriend at home who also agrees with this plan. His vital signs remain stable. On reexamination, posterior tibial and pedal pulses +2 bilaterally with good cap refill. Keflex 3 times a day 7 days sent to pharmacy. 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 - Diagnoses Provider Diagnoses: Cellulitis Discharge - Sign-Out/Discharge Documenting (check all that apply): Discharge/Admit/Transfer - Discharge Plan Condition: Stable Disposition: HOME Prescriptions: Cephalexin CAP* [Keflex CAP*] 500 mg PO TID #21 cap Cephalexin CAP* [Keflex CAP*] 500 mg PO TID #21 cap Patient Education Materials: Cellulitis (ED) Referrals: No Primary Care Phys,NOPCP [Primary Care Provider] - Additional Instructions: keflex 3x daily x 7 days Follow up with Dr. Martinez in 1-2 days - Billing Disposition and Condition Condition: STABLE Disposition: Home Images - Images Full Body (No Head): 1 - measuring 20 x 14 - marked area
[2018-03-21 10:54] VITALS: BP 130/74
== END 2018-03-21 10:52 | disposition home or self-care (01) ==
LOC: ED 07:09
DX: L03.115 Cellulitis of right lower limb (principal); I73.1 Thromboangiitis obliterans [Buerger's disease]; F14.10 Cocaine abuse, uncomplicated; F17.210 Nicotine dependence, cigarettes, uncomplicated; Z79.891 Long term (current) use of opiate analgesic; Z89.022 Acquired absence of left finger(s); Z86.14 Personal history of Methicillin resistant Staphylococcus aureus infection; Z86.19 Personal history of other infectious and parasitic diseases
CPT/HCPCS: 87040; 99282

== ENCOUNTER 2018-09-24 23:38 | Emergency (ER) | payer SELFPAY ==
[2018-09-24 23:57] VITALS: BP 137/74
--- NOTE | 2018-09-25 02:20 | ED ---
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 States he was evaluated at [facility] 09/21/2018 and started on Augmentin 875 BID. No improvement in symptoms and was evaluated again at [facility] on 09/23/2017 and referred to vascular surgery. Seen today by vascular surgery and told he had good circulation to the finger and was referred to orthopedic surgery who instructed him to come the ED for evaluation. Denies fever, chills, joint pain, numbness, or tingling. Unknown tetanus status. 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 Denies: Hx Hypertension Respiratory History: Denies: Hx Asthma, Hx Chronic Obstructive Pulmonary Disease (COPD) GI History: Denies: Hx Ulcer History: Denies: Hx Renal Disease Musculoskeletal History: Denies: Hx Arthritis Psychiatric History: Reports: Hx Anxiety, Hx Substance Abuse - Surgical History Surgery Procedure, Year, and Place: pilonidal cyst 2007~ Hx Anesthesia Reactions: No Infectious Disease History: No Infectious Disease History: Reports: Hx Hepatitis, 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 Denies: Hx Clostridium Difficile, Hx Human Immunodeficiency Virus (HIV), Hx Shingles, Hx Tuberculosis, Traveled Outside the [place] in Last 30 Days - Family History Known Family History: Positive: Unknown Negative: Hypertension - Social History Occupation: Unemployed Lives: With Family Alcohol Use: None Hx Substance Use: Yes - currently takes suboxone Substance Use Type: Reports: Cocaine Substance Use Comment - Amount & Last Used: week ago Smoking Status (MU): Heavy Every Day Tobacco Smoker Type: Cigarettes Length of Time of Smoking/Using Tobacco: 19 years Have You Smoked in the Last Year: Yes Review of Systems Negative: Fever, Chills Cardiovascular: Negative Respiratory: Negative Gastrointestinal: Negative Genitourinary: Negative Musculoskeletal: Other - See HPI Skin: Other - See HPI Negative: Weakness, Paresthesia, Numbness All Other Systems Reviewed And Are Negative: Yes Physical Exam - Summary Physical Exam Summary: GENERAL APPEARANCE: Well developed, well nourished, alert and cooperative, and appears to be in no acute distress. HEAD: Atraumatic. normocephalic. CARDIAC: Normal S1 and S2. No S3, S4 or murmurs. Rhythm is regular. There is no peripheral edema, cyanosis or pallor. Extremities are warm and well perfused. Capillary refill is less than 2 seconds. Peripheral pulses intact. LUNGS: Clear to auscultation without rales, rhonchi, wheezing or diminished breath sounds. ABDOMEN: Positive bowel sounds. Soft, nondistended, nontender. No guarding or rebound. No masses or hepatosplenomegally. MUSKULOSKELETAL: Erythema and edema of right hand. There is an area of discoloration with small pinpoint open wound to the medial aspect of the right mid little finger without drainage. No joint tenderness or deformity. ROM is limited to all fingers due to swelling. EXTREMITIES: No significant deformity or joint abnormality. No edema. NEUROLOGICAL: Strength and sensation intact. SKIN: Skin normal color, texture and turgor with no lesions or eruptions. Triage Information Reviewed: Yes Vital Signs On Initial Exam: Initial Vitals Temp Pulse Resp BP Pulse Ox 98.5 F 68 16 137/74 99 09/24/18 23:51 09/24/18 23:51 09/24/18 23:51 09/24/18 23:51 09/24/18 23:51 Vital Signs Reviewed: Yes Diagnostics - Vital Signs Vital Signs Temp Pulse Resp BP Pulse Ox 09/24/18 23:51 98.5 F 68 16 137/74 99 - Laboratory Result Diagrams: 09/25/18 02:22 09/25/18 02:22 Lab Statement: Any lab studies that have been ordered have been reviewed, and results considered in the medical decision making process. 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 States he was evaluated at [facility] 09/21/2018 and started on Augmentin 875 BID. No improvement in symptoms and was evaluated again at [facility] on 09/23/2017 and referred to vascular surgery. Seen today by vascular surgery and told he had good circulation to the finger and was referred to orthopedic surgery who instructed him to come the ED for evaluation. Denies fever, chills, joint pain, numbness, or tingling. Unknown tetanus status. Afebrile. Vital signs stable. Exam reveals an alert adult male in no acute distress. He has erythema with moderate non- pitting edema to the right hand. There is an approximate area of discoloration to the medial aspect of his mid right little finger. ROM is limited to all fingers d/t edema. Sensation intact distally. CBC shows normal WBC, RBC, H&H, and mildly decreased decreased platelet count at 149. CMP showed a mildly elevated potassium of 5.1 and glucose of 101. Blood cultures are pending. X- ray showed no acute fracture or dislocation. Discussed findings with Dr. Gibson , orthopedic surgery, who is recommending admission to medical service with or without consult for IV antibiotics. 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 The patient is clinically sober, free from distracting injury, appears to have insight and reasoning and in my judgment has capacity to make decisions. Patient presents with what appears to be cellulitis of the right hand that is not responding to oral antibiotics. I have explained my concerns patient verbalizes understanding. I have told the patient that despite his labs being normal at present and his x-ray being negative for a fracture that he could still risk worsening of symptoms which may result in possible loss of limb or even . I have discussed my concerns with his significant other as well verbalizes understanding. The patient continues to refuse admission and is leaving AGAINST MEDICAL ADVICE. He has been instructed to continue his Augmentin as previously prescribed and to return to the emergency room for any worsening of symptoms. - Diagnoses Differential Diagnosis/HQI/PQRI: Positive: Fracture (Closed), Septic Arthritis, Other - celluitis, compartment syndrome Provider Diagnoses: Cellulitis of multiple sites of right hand and fingers Discharge - Sign-Out/Discharge Documenting (check all that apply): Patient Departure - Discharge Plan Condition: Stable Disposition: AGAINST MEDICAL ADVICE Patient Education Materials: Cellulitis (ED) Forms: *Work Release Referrals: No Primary Care Phys,NOPCP [Primary Care Provider] - Additional Instructions: It has been recommended to you that you be admitted to the hospital for IV antibiotics. You have elected to leave against medical advice. Return immediately to the emergency room for fever greater than 100.5 F, increased redness, swelling, numbness or tingling in the hand, or any worsening of symptoms. - Billing Disposition and Condition Condition: STABLE Disposition: Against Medical Advice
[2018-09-25] MEDS ORDERED: Tetan/Diph/Pertus SYR(Tdap)* 0.5 ML SYR(BOOSTRIX) use SYR IM ONE (02:21)
[2018-09-25 02:48] LABS: ABS Basophils 0.1 10^3/ul (0-0.2); ABS Eosinophils 0.3 10^3/ul (0-0.6); ABS Monocytes 0.6 10^3/ul (0-0.8); ABS Neutrophils 5.3 10^3/ul (1.5-7.7); ABS Nucleated RBC 0 10^3/ul; Eosinophil % 3.2 %; Hematocrit 43 % (42-52); Hemoglobin 14.5 g/dl (14.0-18.0); Lymphocyte % 32.2 %; Mean Corpuscular HGB Conc 34 g/dl (31-36); Mean Corpuscular Hemoglobin 30 pg (27-31); Mean Corpuscular Volume 88 fL (80-94); Mean Platelet Volume 8.6 fL (7.4-10.4); Nucleated Red Blood Cells % 0.1; Platelet Count 149 10^3/ul (150-450); Red Blood Count 4.88 10^6/ul (4.00-5.40); Red Cell Distribution Width 16 % (10.5-15); White Blood Count 9.2 10^3/ul (3.5-10.8)
[2018-09-25 03:04] LABS: BUN/Creatinine Ratio 22.2 (8-20); Calcium 9.4 mg/dL (8.6-10.3); EGFR Non-African American 88.2 (>60)
[2018-09-25 03:12] LABS: Potassium 5.1 mmol/L (3.5-5.0)
== END 2018-09-25 04:20 | disposition left against medical advice (07) ==
LOC: ED 23:38
DX: L03.113 Cellulitis of right upper limb (principal); L03.011 Cellulitis of right finger; Z23 Encounter for immunization; I73.1 Thromboangiitis obliterans [Buerger's disease]; F17.210 Nicotine dependence, cigarettes, uncomplicated
CPT/HCPCS: 36415; 80048; 85025; 87040; 90471; 99282

== ENCOUNTER 2018-09-25 19:38 | Inpatient (IN) | payer SELFPAY ==
[2018-09-25 21:19] LABS: ABS Basophils 0.1 10^3/ul (0-0.2); ABS Eosinophils 0.4 10^3/ul (0-0.6); ABS Lymphocytes 2.7 10^3/ul (1.0-4.8); ABS Monocytes 0.6 10^3/ul (0-0.8); ABS Neutrophils 6.6 10^3/ul (1.5-7.7); ABS Nucleated RBC 0 10^3/ul; Eosinophil % 3.6 %; Hematocrit 43 % (42-52); Hemoglobin 14.6 g/dl (14.0-18.0); Mean Corpuscular HGB Conc 34 g/dl (31-36); Mean Corpuscular Hemoglobin 30 pg (27-31); Mean Corpuscular Volume 87 fL (80-94); Mean Platelet Volume 8.5 fL (7.4-10.4); Nucleated Red Blood Cells % 0.1; Platelet Count 167 10^3/ul (150-450); Red Blood Count 4.89 10^6/ul (4.00-5.40); Red Cell Distribution Width 16 % (10.5-15); White Blood Count 10.4 10^3/ul (3.5-10.8)
[2018-09-25] MEDS ORDERED: NS 0.9% 1000 ML*IV.FLUID IV ONE (21:30)
[2018-09-25 21:37] LABS: Albumin 4.5 g/dL (3.2-5.2); Albumin/Globulin Ratio 1.4 (1-3); BUN/Creatinine Ratio 15.7 (8-20); C Reactive Protein 4.77 mg/L (<8.01); Calcium 9.4 mg/dL (8.6-10.3); EGFR Non-African American 85.2 (>60); Globulin 3.3 g/dL (2-4); Total Bilirubin 0.7 mg/dL (0.2-1.0); Total Protein 7.8 g/dL (6.4-8.9)
--- NOTE | 2018-09-25 21:39 | ED ---
Skin Complaint - HPI Summary HPI Summary: 32-year-old male presents with right hand swelling for the past couple days. he has a history of Buerger's disease. He states he shut his index finger shut pinky in a car door on the . was evaluated at [facility] started on Augmentin twice a day on Thursday. He states he had no improvement. He states he is referred to vascular surgeon that he said he had good circulation to the area. he states he was told by ortho to come. He was seen here yesterday and was examined but signed out AMA. He denies any fevers chills. no spreading redness. stated edema has increased to area. states area on right pinky has opened up and is draining fluids and pus. is right handed. - History of Current Complaint Chief Complaint: EDExtremityUpper Time Seen by Provider: 09/25/18 20:41 Stated Complaint: RT HAND SWOLLEN Pain Intensity: 5 - Allergy/Home Medications Allergies/Adverse Reactions: Allergies Allergy/AdvReac Type Severity Reaction Status Date / Time No Known Allergies Allergy Verified 09/25/18 19:54 PMH/Surg Hx/FS Hx/Imm Hx Endocrine/Hematology History: Denies: Hx Anticoagulant Therapy, Hx Blood Disorders, Hx Diabetes, Hx Thyroid Disease, Hx Unexplained Bleeding Cardiovascular History: 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 Denies: Hx Hypertension Respiratory History: Denies: Hx Asthma, Hx Chronic Obstructive Pulmonary Disease (COPD) GI History: Denies: Hx Ulcer History: Denies: Hx Renal Disease Musculoskeletal History: Denies: Hx Arthritis Psychiatric History: Reports: Hx Anxiety, Hx Substance Abuse - Surgical History Surgery Procedure, Year, and Place: pilonidal cyst 2007~ Hx Anesthesia Reactions: No Infectious Disease History: No Infectious Disease History: Reports: Hx Hepatitis, 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 Denies: Hx Clostridium Difficile, Hx Human Immunodeficiency Virus (HIV), Hx Shingles, Hx Tuberculosis, Traveled Outside the [place] in Last 30 Days - Family History Known Family History: Positive: Unknown Negative: Hypertension - Social History Alcohol Use: None Hx Substance Use: Yes - currently takes suboxone Substance Use Type: Reports: Cocaine Substance Use Comment - Amount & Last Used: week ago Smoking Status (MU): Heavy Every Day Tobacco Smoker Type: Cigarettes Length of Time of Smoking/Using Tobacco: 19 years Have You Smoked in the Last Year: Yes Review of Systems Negative: Fever Negative: Chest Pain Positive: Edema - right hand Positive: Rash All Other Systems Reviewed And Are Negative: Yes Physical Exam Triage Information Reviewed: Yes Vital Signs On Initial Exam: Initial Vitals Temp Pulse Resp BP Pulse Ox 98.4 F 77 16 126/77 98 09/25/18 19:52 09/25/18 19:52 09/25/18 19:52 09/25/18 19:52 09/25/18 19:52 Vital Signs Reviewed: Yes Appearance: Positive: Well-Appearing Skin: Positive: Warm, Dry Head/Face: Positive: Normal Head/Face Inspection Eyes: Positive: Normal, Conjunctiva Clear ENT: Positive: Pharynx normal Respiratory/Lung Sounds: Positive: Clear to Auscultation, Breath Sounds Present Cardiovascular: Positive: Normal, RRR Musculoskeletal: Positive: Limited @ - right hand, Other - blood blister type lesion right pinky finger, capillary refill<2 secs, edema and erythema to right hand Neurological: Positive: Normal Psychiatric: Positive: Normal Diagnostics - Vital Signs Vital Signs Temp Pulse Resp BP Pulse Ox 09/25/18 19:52 98.4 F 77 16 126/77 98 - Laboratory Lab Results: Lab Results 09/25/18 09/25/18 09/25/18 Range/Units 21:09 21:09 21:09 WBC 10.4 (3.5-10.8) 10^3/ul RBC 4.89 (4.00-5.40) 10^6/ul Hgb 14.6 (14.0-18.0) g/dl Hct 43 (42-52) % MCV 87 (80-94) fL MCH 30 (27-31) pg MCHC 34 (31-36) g/dl RDW 16 H (10.5-15) % Plt Count 167 (150-450) 10^3/ul MPV 8.5 (7.4-10.4) fL Neut % (Auto) 63.7 % Lymph % (Auto) 26.0 % [place] % (Auto) 6.2 % Eos % (Auto) 3.6 % Baso % (Auto) 0.5 % Absolute Neuts (auto) 6.6 (1.5-7.7) 10^3/ul Absolute Lymphs (auto) 2.7 (1.0-4.8) 10^3/ul Absolute Monos (auto) 0.6 (0-0.8) 10^3/ul Absolute Eos (auto) 0.4 (0-0.6) 10^3/ul Absolute Basos (auto) 0.1 (0-0.2) 10^3/ul Absolute Nucleated RBC 0 10^3/ul Nucleated RBC % 0.1 Sodium 139 (135-145) mmol/L Potassium Pending Chloride 102 (101-111) mmol/L Carbon Dioxide 30 (22-32) mmol/L Anion Gap Pending BUN 16 (6-24) mg/dL Creatinine 1.02 (0.67-1.17) mg/dL Est GFR ( Amer) 103.1 (>60) Est GFR (Non-Af Amer) 85.2 (>60) BUN/Creatinine Ratio 15.7 (8-20) Glucose 92 (70-100) mg/dL Lactic Acid 0.4 L (0.5-2.0) mmol/L Calcium 9.4 (8.6-10.3) mg/dL Total Bilirubin 0.70 (0.2-1.0) mg/dL AST Pending ALT 13 (7-52) U/L Alkaline Phosphatase 79 (34-104) U/L C-Reactive Protein 4.77 (<8.01) mg/L Total Protein 7.8 (6.4-8.9) g/dL Albumin 4.5 (3.2-5.2) g/dL Globulin 3.3 (2-4) g/dL Albumin/Globulin Ratio 1.4 (1-3) Result Diagrams: 09/25/18 21:09 09/25/18 21:09 Lab Statement: Any lab studies that have been ordered have been reviewed, and results considered in the medical decision making process. Course/Dx - Course Course Of Treatment: 32-year-old male presents with right hand swelling for the past couple days. he has a history of Buerger's disease. He states he shut his index finger shut pinky in a car door on the . was evaluated at [facility] started on Augmentin twice a day on Thursday. He states he had no improvement. He states he is referred to vascular surgeon that he said he had good circulation to the area. he states he was told by ortho to come. He was seen here yesterday and was examined but signed out AMA. He denies any fevers chills. no spreading redness. stated edema has increased to area. states area on right pinky has opened up and is draining fluids and pus. is right handed. on exam has erythema to right hand with edema. has blood blister type lesion to right pinky. limited ROM due to edema. lab work without significant abnormality. discussed with dr villalpando who will see tomorrow and requested admission for IV antibiotics. dr ontiveros agrees to admit patient. - Differential Diagnoses - Skin Complaint Differential Diagnoses: Abscess, Cellulitis, Other - tenosynvoitis - Diagnoses Provider Diagnoses: Cellulitis of right hand Discharge - Sign-Out/Discharge Documenting (check all that apply): Patient Departure - Discharge Plan Condition: Stable Disposition: ADMITTED TO [facility] Referrals: No Primary Care Phys,NOPCP [Primary Care Provider] - - Billing Disposition and Condition Condition: STABLE Disposition: Admitted to [facility]
[2018-09-25 21:42] LABS: Potassium 3.9 mmol/L (3.5-5.0)
[2018-09-25] MEDS ORDERED: Ketorolac INJ* 30 MG/ML 1 ML VIAL IV PUSH ONE (21:42)
[2018-09-25] MEDS ORDERED: Vancomycin(*) 1,000 MG VIAL IVPB SCH (22:00)
[2018-09-25] MEDS ORDERED: Nicotine Inhaler* 10 MG AMP INH ONE (22:41)
[2018-09-25] MEDS ORDERED: Mouth Piece, Nicotine* 1 EACH CARTRIDGE ONE (22:42)
[2018-09-25] MEDS ORDERED: Nicotine Inhaler* 10 MG AMP ONE (22:42)
[2018-09-25] MEDS ORDERED: Nicotine GUM* 2 MG ONE (22:42)
[2018-09-25] MEDS ORDERED: Vancomycin per Pharmacy* NOTE FOLLOW UP SCH (23:00)
[2018-09-25] MEDS ORDERED: Vancomycin(*) 1,250 MG IV x ONCE IVPB ONE ×2 (23:45)
[2018-09-26] MEDS: Gabapentin CAP(*) 400 MG PO SCH ×5 (00:55→20:28)
[2018-09-26] MEDS: Buprenorp/Nalox 8-2 MG SL TAB.SL SL SCH ×4 (00:55→20:29)
[2018-09-26 02:03] LABS: Urine Appearance Cloudy; Urine Bilirubin Negative (Negative); Urine Blood Negative (Negative); Urine Color Yellow; Urine Glucose Negative (Negative); Urine Ketones Trace (Negative); Urine Nitrite Negative (Negative); Urine Protein Negative (Negative); Urine Specific Gravity 1.027 (1.010-1.030); Urine Urobilinogen Positive (Negative)
--- NOTE | 2018-09-26 02:31 | ADMNOTE ---
Subjective Date of Service: 09/25/18 Interval History: HISTORY and PHYSICAL CC: RT pinky finger swelling HPI: Patient is 32 year old man w/ history of Buergers Syndome, who had RT 5th finger caught in car door on 09/20/18. He has had progressive swelling, pain, and loss of skin in the distal phalanx progressing to whole finger and whole hand since then. He has seen physician at [facility] and has been referred to vascular surgery, who assessed the circulation and advised hand surgery follow-up. Patient has been in contact with Dr. Gibson office where he was advised to come to ER for admission. He was here yesterday, but left AMA. No fevers noted, no streaking up arm. Review of Buergers syndrome shows biopsy at this hospital in 03/07, showed occlusive vasculopathy and ischemic necrosis of bone from left fingers. Family History: Findings - Father with mental health and COPD issues, Mother recently had brain tumor resection. Social History: Findings - , has 3 children with another GF who he is now from, works in house painting. Smokes (rolls his own) about 1 PPD , rare alcohol. Last drug use cocaine in 02/05, IV opiates more distantly. Past Medical History: Findings - Buerger Syndrome, Hepatitis C, PSH: pilonidal cyst excision, L 3rd/4th fingers distal phalanx amputations Review of Systems - Measurements Intake and Output: Intake and Output Last 24 Hours 09/23/18 09/24/18 09/25/18 09/26/18 06:59 06:59 06:59 06:59 Weight 81.193 kg - Review of Systems Constitutional Symptoms: Negative: Fatigue, Night Sweats Dermatology: Positive: Rash, Skin Lesions HEENT: Positive: Normal Eyes: Positive: Normal Thyroid: Positive: Normal Pulmonary: Positive: Normal Cardiology: Positive: Normal Gastroenterology: Positive: Normal Genital - Urinary: Positive: Normal Musculoskeletal: Positive: Joint Deformities Endocrinology: Positive: Normal Hematologic/Lymphatic: Negative: Anemia, Use of Anticoagulant, Use of Antiplatelet Drugs Neurology: Positive: Normal Psychiatry: Positive: Normal Allergic/Immunologic: Positive: Other - recent HepC diagnosis Objective Active Medications: Buprenorphine/Naloxone (Suboxone 8-2 Mg Sl Tab*) 1 tab.sl SL TID JORGE Last Admin: 09/26/18 00:55 Dose: 1 tab.sl Gabapentin (Neurontin Cap(*)) 800 mg PO QID [facility] Last Admin: 09/26/18 00:55 Dose: 800 mg Vancomycin HCl 1,250 mg/ (Sodium Chloride) 250 mls @ 166.667 mls/hr IVPB Q8H [facility] Ibuprofen (Motrin Tab*) 600 mg PO Q6H PRN PRN Reason: PAIN Pharmacy Consult (Vancomycin Per Pharmacy*) 1 note FOLLOW UP .VANC PER PHARMACY [facility] Pharmacy Profile Note (Vancomycin Trough Check) 1 note FOLLOW UP 829 ONE Stop: 09/27/18 08:31 Varenicline (Chantix (Nf)) 0.5 mg PO BID [facility] Vital Signs - 8 hr 09/25/18 09/25/18 09/25/18 19:52 21:51 21:52 Temperature 36.9 C Pulse Rate 77 76 79 Respiratory 16 Rate Blood Pressure 126/77 132/66 (mmHg) O2 Sat by Pulse 98 96 94 Oximetry 09/25/18 09/25/18 09/26/18 23:22 23:30 00:39 Temperature 36.8 C 36.6 C Pulse Rate 71 62 Respiratory 18 17 Rate Blood Pressure 123/75 123/75 121/66 (mmHg) O2 Sat by Pulse 97 97 Oximetry Oxygen Devices in Use Now: None Appearance: no distress Eyes: No Scleral Icterus, PERRLA Ears/Nose/Mouth/Throat: NL Teeth, Lips, Gums Neck: NL Appearance and Movements; NL JVP Respiratory: Symmetrical Chest Expansion and Respiratory Effort, Clear to Auscultation Cardiovascular: NL Sounds; No Murmurs; No JVD, RRR Abdominal: NL Sounds; No Tenderness; No Distention, No Hepatosplenomegaly Lymphatic: No Cervical Adenopathy, No Axillary Adenopathy Extremities: No Edema, - - LT 3rd and 4th distal phalanx amputation well healed Skin: - - RT 5th finger dugan devitalized skin in area ventral/medial distal phalanx, near nail, with 3 tiny open areas, oozing serosanguinous fluid, entire RT hand, all 5 fingers erythematous edematous, to wrist Neurological: Alert and Oriented x 3 Lines/Tubes/Other Access: Clean, Dry and Intact Peripheral IV Nutrition: Taking PO's Result Diagrams: 09/25/18 21:09 09/25/18 21:09 Additional Lab and Data: Laboratory Tests 0109/25/18 09/26/18 21:09 21:09 01:00 Lactic Acid 0.4 L Calcium 9.4 AST 19 ALT 13 C-Reactive Protein 4.77 Total Protein 7.8 Urine Color Yellow Urine Ketones Trace A Urine Urobilinogen Positive A Diagnostic Imaging: RT hand X-ray earlier on 09/25: lucency inRT wrist ulnar aspect near hamate Assess/Plan/Problems-Billing Assessment: 32 year old man with Buerger's syndrome admitted with RT 5th finger injury and cellulitis. - Patient Problems (1) Cellulitis of right little finger Current Visit: No Status: Acute Priority: High Code(s): L03.011 - CELLULITIS OF RIGHT FINGER SNOMED Code(s): 85542068 Comment: Requires admission to hospital, elevation of RUE. Cover MRSA, other strep/staph with vancomycin IV. Dr. Gibson to assess hand in AM. (2) Buerger's disease Current Visit: No Status: Chronic Priority: Medium Code(s): I73.1 - THROMBOANGIITIS OBLITERANS [BUERGER'S DISEASE] SNOMED Code(s): 41117210 Comment: Discussed importance of quitting tobacco Dr. Gibson to assess for devitalized tissue vs infection (3) Hepatitis C infection Current Visit: No Status: Chronic Priority: Medium Comment: Will investigate HepC further with viral load and genotyping. May be Shantelle candidate (4) Opiate use Current Visit: No Status: Chronic Priority: Medium Code(s): F11.90 - OPIOID USE, UNSPECIFIED, UNCOMPLICATED SNOMED Code(s): 493513290 Comment: Continue Suboxone for opiate use disorder Responding well to MAT. (5) Tobacco abuse Current Visit: No Status: Chronic Priority: Medium Code(s): Z72.0 - TOBACCO USE SNOMED Code(s): 227984864 Comment: Patient expressed desire to quit. Will start Chantix while here in hospital. Status and Disposition: Inpatient for surgical consult, IV antibiotics
[2018-09-26] MEDS: Ibuprofen TAB* 600 MG PO PRN ×2 (08:48→18:37)
[2018-09-26] MEDS: Vancomycin(*) 1,250 MG in NS 0.9% 250 ML* 250 ML IVPB SCH ×2 (08:49→18:38)
[2018-09-26] MEDS ORDERED: VARENICLINE 0.5 MG TAB(NF) PO SCH (09:00)
[2018-09-26] MEDS: Heparin VIAL(*) 5000 UNITS/ML VIAL (FIVE THOUSAND) SUBCUT SCH ×2 (13:27→22:16)
--- NOTE | 2018-09-26 14:07 | HP ---
HISTORY AND PHYSICAL: DATE OF ADMISSION: 09/25/18 SURGEON: Duncan Gibson MD.* (DICTATED BY DEBORA JENKINS) HISTORY OF PRESENT ILLNESS: Mr. Richardson is a 32-year-old gentleman, who slammed his right fifth finger in a door back on 09/20/18. Since that time, he has had worsening pain, swelling, and redness of his hand, and he has noticed some necrotic tissue over the right fifth finger. PAST MEDICAL HISTORY: Buerger's syndrome, hepatitis C. PAST SURGICAL HISTORY: Third and fourth finger partial amputations on the left hand. FAMILY HISTORY: COPD, brain tumor, and some mental health disorders in his father. SOCIAL HISTORY: He is a 32-year-old gentleman who is . He has 3 children. He smokes approximately 1 pack a day. He reports he stopped IV drug use. REVIEW OF SYSTEMS: A complete 14-point review of systems was reviewed with the patient. It was all negative or noncontributory. He does have a history of hepatitis C. PHYSICAL EXAMINATION GENERAL: He is well developed, well nourished, in no acute distress. MUSCULOSKELETAL: No open wounds or abrasions. Right upper extremity: The right hand is very swollen and cellulitic especially the right fifth finger and there is an area of skin necrosis on the dorsum near the tip of the right fifth finger. The fingers on hand appear viable. He does have a strong pulse and intact sensation. ASSESSMENT AND PLAN: Mr. Richardson is a 32-year-old gentleman with cellulitis of his right hand with some skin necrosis over the dorsum of the right fifth finger. He was evaluated at bedside by Dr. Gibson this morning and the plan is to continue IV antibiotics for now. We will continue to watch this closely, but at this time, no surgical intervention is necessary. DEBORA JENKINS [id number]/[facility] #: [id number] MTDD
[2018-09-26] MEDS ORDERED: Nicotine Inhaler* 10 MG AMP INH PRN (15:37)
--- NOTE | 2018-09-26 15:50 | PN ---
Subjective Date of Service: 09/26/18 Interval History: Pt seen and examined. Meds and labs reviewed. CC: N/A ROS: Denied MALIN/dizziness, F/C, N/V, CP, SOB, increased cough, sputum production , abd pain, diarrhea, constipation, dysuria, myalgias, arthralgias, throat pain , and new skin lesions. The rest of the 14 point ROS are unremarkable. PHYSICAL EXAM: GEN APPEARANCE: Awake, not in acute distress HEENT: NC/AT, PERRLA, moist oral mucosa, (-) throat erythema NECK: Soft, supple, (-) cervical LAD, (-)JVD HEART: S1S2 WNL, RRR, No MRG CHEST: CTA, BL, GAE, No W/R/R ABD: Soft, ND/NT, NABS 4x Q EXT: No C/C/Right 5th finger tip appears to have some evidence of necrosis and around it, was warm, edematous, and tender; left hand similarly appears erythematous and with mild edema but mentions this has always been the case; left middle and ring finger amputation above PIP SKIN: Warm to touch PSYCH: No active psychosis, hallucinations, depression, SI/HI Family History: Findings - Father with mental health and COPD issues, Mother recently had brain tumor resection. Social History: Findings - , has 3 children with another GF who he is now from, works in house painting. Smokes (rolls his own) about 1 PPD , rare alcohol. Last drug use cocaine in 02/05, IV opiates more distantly. Past Medical History: Findings - Buerger Syndrome, Hepatitis C, PSH: pilonidal cyst excision, L 3rd/4th fingers distal phalanx amputations Objective Active Medications: Buprenorphine/Naloxone (Suboxone 8-2 Mg Sl Tab*) 1 tab.sl SL TID [facility] Last Admin: 09/26/18 13:26 Dose: 1 tab.sl Gabapentin (Neurontin Cap(*)) 800 mg PO QID [facility] Last Admin: 09/26/18 13:26 Dose: 800 mg Heparin Sodium (Porcine) (Heparin Vial(*)) 5,000 units SUBCUT Q8HR [facility] Last Admin: 09/26/18 13:27 Dose: 5,000 units Vancomycin HCl 1,250 mg/ (Sodium Chloride) 250 mls @ 166.667 mls/hr IVPB Q8H [facility] Last Admin: 09/26/18 08:49 Dose: 166.667 mls/hr Ibuprofen (Motrin Tab*) 600 mg PO Q6H PRN PRN Reason: PAIN Last Admin: 09/26/18 08:48 Dose: 600 mg Nicotine (Nicotine Inhaler*) 10 mg INH Q2H PRN PRN Reason: CRAVING Pharmacy Consult (Vancomycin Per Pharmacy*) 1 note FOLLOW UP .VANC PER PHARMACY [facility] Pharmacy Profile Note (Vancomycin Trough Check) 1 note FOLLOW UP 0830 ONE Stop: 09/27/18 08:31 Varenicline (Chantix (Nf)) 0.5 mg PO BID [facility] Vital Signs - 8 hr 09/26/18 09/26/18 09/26/18 08:49 09:00 11:27 Temperature 97.7 F Pulse Rate 70 Respiratory 16 16 16 Rate Blood Pressure 136/80 (mmHg) O2 Sat by Pulse 100 Oximetry 09/26/18 09/26/18 13:26 13:28 Temperature Pulse Rate Respiratory 16 16 Rate Blood Pressure (mmHg) O2 Sat by Pulse Oximetry Oxygen Devices in Use Now: None Result Diagrams: 09/25/18 21:09 09/25/18 21:09 Additional Lab and Data: Laboratory Tests 09/25/18 09/25/18 09/26/18 21:09 21:09 01:00 Lactic Acid 0.4 L Calcium 9.4 AST 19 ALT 13 C-Reactive Protein 4.77 Total Protein 7.8 Urine Color Yellow Urine Ketones Trace A Urine Urobilinogen Positive A Microbiology and Other Data: Microbiology 09/26/18 00:50 Nasal Screen MRSA (PCR) - Final Nasal Mrsa Not Detected Diagnostic Imaging: RT hand X-ray earlier on 09/25: lucency inRT wrist ulnar aspect near hamate Assess/Plan/Problems-Billing Assessment: 32 year old man with Buerger's syndrome admitted with RT 5th finger injury and cellulitis. 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 Gibson -Continue to follow cultures (2) Buerger's disease Current Visit: No Status: Chronic Priority: Medium Code(s): I73.1 - THROMBOANGIITIS OBLITERANS [BUERGER'S DISEASE] SNOMED Code(s): 45336029 Comment: - Discussed importance of quitting tobacco -Dr. Gibson to assess for devitalized tissue vs infection (3) Hepatitis C infection Current Visit: No Status: Chronic Priority: Medium Comment: -Defer discussion DAA (direct-acting antivirals) w/pts PCP on outpt F/U (4) Opiate use Current Visit: No Status: Chronic Priority: Medium Code(s): F11.90 - OPIOID USE, UNSPECIFIED, UNCOMPLICATED SNOMED Code(s): 799214037 Comment: Continue Suboxone for opiate use disorder Responding well to MAT. (5) Tobacco abuse Current Visit: No Status: Chronic Priority: Medium Code(s): Z72.0 - TOBACCO USE SNOMED Code(s): 959824320 Comment: -Continue Chantix -Placed on PRN Nicotine INH as ordered -Advised life-style modifications Status and Disposition: Inpatient for surgical consult, IV antibiotics
[2018-09-26] MEDS: CMC:Varenicline (NF) 1 MG TAB PO SCH (20:29)
[2018-09-27] MEDS: Vancomycin(*) 1,250 MG in NS 0.9% 250 ML* 250 ML IVPB SCH ×3 (00:49→21:27)
[2018-09-27] MEDS: Ibuprofen TAB* 600 MG PO PRN ×2 (04:07→13:25)
[2018-09-27] MEDS: Heparin VIAL(*) 5000 UNITS/ML VIAL (FIVE THOUSAND) SUBCUT SCH ×3 (05:43→21:30)
[2018-09-27 06:12] LABS: ABS Basophils 0.1 10^3/ul (0-0.2); ABS Eosinophils 0.3 10^3/ul (0-0.6); ABS Lymphocytes 2.1 10^3/ul (1.0-4.8); ABS Monocytes 0.4 10^3/ul (0-0.8); ABS Neutrophils 3.3 10^3/ul (1.5-7.7); ABS Nucleated RBC 0 10^3/ul; Eosinophil % 5.5 %; Hematocrit 43 % (42-52); Hemoglobin 14.3 g/dl (14.0-18.0); Lymphocyte % 33.7 %; Mean Corpuscular HGB Conc 34 g/dl (31-36); Mean Corpuscular Hemoglobin 30 pg (27-31); Mean Corpuscular Volume 88 fL (80-94); Mean Platelet Volume 8.8 fL (7.4-10.4); Nucleated Red Blood Cells % 0.1; Platelet Count 136 10^3/ul (150-450); Red Blood Count 4.82 10^6/ul (4.00-5.40); Red Cell Distribution Width 17 % (10.5-15); White Blood Count 6.1 10^3/ul (3.5-10.8)
[2018-09-27 06:28] LABS: INR 0.87 (0.77-1.02)
[2018-09-27 06:35] LABS: Albumin 3.8 g/dL (3.2-5.2); Albumin/Globulin Ratio 1.3 (1-3); Calcium 8.8 mg/dL (8.6-10.3); EGFR Non-African American 103.7 (>60); Globulin 2.9 g/dL (2-4); Magnesium 2.1 mg/dL (1.9-2.7); Phosphorus 4.5 mg/dL (2.5-5.0); Potassium 3.8 mmol/L (3.5-5.0); Total Bilirubin 0.7 mg/dL (0.2-1.0); Total Protein 6.7 g/dL (6.4-8.9)
[2018-09-27] MEDS: CMC:Varenicline (NF) 1 MG TAB PO SCH ×2 (08:30→21:28)
[2018-09-27] MEDS ORDERED: Vancomycin Trough Check NOTE FOLLOW UP ONE (08:30)
[2018-09-27] MEDS: Gabapentin CAP(*) 400 MG PO SCH ×4 (08:31→21:27)
[2018-09-27] MEDS: Buprenorp/Nalox 8-2 MG SL TAB.SL SL SCH ×3 (08:31→21:27)
--- NOTE | 2018-09-27 10:35 | PN ---
Progress Note - Progress Note Date of Service: 09/27/18 SOAP: Subjective: []Pt seen and examined at bedside today. He has no complaints, no pain of his fingers. His right 5th digit has an area of devitalized tissue with unroofed blisters that is unchanged in 3 days. His hands are very edematous, he feels this is consistent with his baseline. Objective: [] General: Pleasant, NAD RUE: Right hand and digits are all with moderate to severe edema, mild diffuse erythema that does not extend past the wrist. Dorsum of the 5th digit has a nickel sized dusky dubose area with 1 mm unroofed blisters with serous drainage. Able to flex and extend all digits though cannot make a fist due to severe edema. No fluctuance or evidence of large fluid collection. Sensation is intact to light touch and capillary refill is less than two seconds distally throughout all digits. LUE thumb and index finger are equally edematous compared to contralateral side , without erythema and neurovascularly intact distally. Assessment: []Right hand cellulitis, tissue devitalization dorsum of 5th digit Hx thrombongitis obliterans Plan: []WBAT Continue IV abx - on vanco Will continue to monitor cellulitis and dusky area Smoking cessation - on chantix, no cigarettes in 2 days Vital Signs Temp 97.7 F 09/27/18 07:43 Pulse 57 09/27/18 07:43 Resp 18 09/27/18 08:31 BP 97/45 09/27/18 07:43 Pulse Ox 100 09/27/18 07:43 Intake & Output 09/26/18 09/27/18 09/27/18 18:59 06:59 18:59 Intake Total 500 1565 720 Balance 500 1565 720 Intake: IV Fluids 565 ABX - VANCOMYCIN 565 IVPB 270 ABX - VANCOMYCIN 270 Oral 230 1000 720 Other: Estimated Void Medium Medium Medium # Voids 2 3 3 Laboratory Last Values WBC 6.1 10^3/ul (3.5-10.8) 09/27/18 05:42 RBC 4.82 10^6/ul (4.00-5.40) 09/27/18 05:42 Hgb 14.3 g/dl (14.0-18.0) 09/27/18 05:42 Hct 43 % (42-52) 09/27/18 05:42 MCV 88 fL (80-94) 09/27/18 05:42 MCH 30 pg (27-31) 09/27/18 05:42 MCHC 34 g/dl (31-36) 09/27/18 05:42 RDW 17 % (10.5-15) H 09/27/18 05:42 Plt Count 136 10^3/ul (150-450) L 09/27/18 05:42 MPV 8.8 fL (7.4-10.4) 09/27/18 05:42 Neut % (Auto) 53.2 % 09/27/18 05:42 Lymph % (Auto) 33.7 % 09/27/18 05:42 [place] % (Auto) 6.7 % 09/27/18 05:42 Eos % (Auto) 5.5 % 09/27/18 05:42 Baso % (Auto) 0.9 % 09/27/18 05:42 Absolute Neuts (auto) 3.3 10^3/ul (1.5-7.7) 09/27/18 05:42 Absolute Lymphs (auto) 2.1 10^3/ul (1.0-4.8) 09/27/18 05:42 Absolute Monos (auto) 0.4 10^3/ul (0-0.8) 09/27/18 05:42 Absolute Eos (auto) 0.3 10^3/ul (0-0.6) 09/27/18 05:42 Absolute Basos (auto) 0.1 10^3/ul (0-0.2) 09/27/18 05:42 Absolute Nucleated RBC 0 10^3/ul 09/27/18 05:42 Nucleated RBC % 0.1 09/27/18 05:42 INR (Anticoag Therapy) 0.87 (0.77-1.02) 09/27/18 05:42 APTT 33.0 seconds (26.0-36.3) 09/27/18 05:42 Sodium 140 mmol/L (135-145) 09/27/18 05:42 Potassium 3.8 mmol/L (3.5-5.0) 09/27/18 05:42 Chloride 105 mmol/L (101-111) 09/27/18 05:42 Carbon Dioxide 29 mmol/L (22-32) 09/27/18 05:42 Anion Gap 6 mmol/L (2-11) 09/27/18 05:42 BUN 12 mg/dL (6-24) 09/27/18 05:42 Creatinine 0.86 mg/dL (0.67-1.17) 09/27/18 05:42 Est GFR ( Amer) 125.5 (>60) 09/27/18 05:42 Est GFR (Non-Af Amer) 103.7 (>60) 09/27/18 05:42 BUN/Creatinine Ratio 14.0 (8-20) 09/27/18 05:42 Glucose 108 mg/dL (70-100) H 09/27/18 05:42 Lactic Acid 1.6 mmol/L (0.5-2.0) 09/26/18 01:53 Calcium 8.8 mg/dL (8.6-10.3) 09/27/18 05:42 Phosphorus 4.5 mg/dL (2.5-5.0) 09/27/18 05:42 Magnesium 2.1 mg/dL (1.9-2.7) 09/27/18 05:42 Total Bilirubin 0.70 mg/dL (0.2-1.0) 09/27/18 05:42 AST 16 U/L (13-39) 09/27/18 05:42 ALT 12 U/L (7-52) 09/27/18 05:42 Alkaline Phosphatase 69 U/L (34-104) 09/27/18 05:42 C-Reactive Protein 4.77 mg/L (<8.01) 09/25/18 21:09 Total Protein 6.7 g/dL (6.4-8.9) 09/27/18 05:42 Albumin 3.8 g/dL (3.2-5.2) 09/27/18 05:42 Globulin 2.9 g/dL (2-4) 09/27/18 05:42 Albumin/Globulin Ratio 1.3 (1-3) 09/27/18 05:42 Urine Color Yellow 09/26/18 01:00 Urine Appearance Cloudy 09/26/18 01:00 Urine pH 5.0 (5-9) 09/26/18 01:00 Ur Specific [place] 1.027 (1.010-1.030) 09/26/18 01:00 Urine Protein Negative (Negative) 09/26/18 01:00 Urine Ketones Trace (Negative) A 09/26/18 01:00 Urine Blood Negative (Negative) 09/26/18 01:00 Urine Nitrate Negative (Negative) 09/26/18 01:00 Urine Bilirubin Negative (Negative) 09/26/18 01:00 Urine Urobilinogen Positive (Negative) A 09/26/18 01:00 Ur Leukocyte Esterase Negative (Negative) 09/26/18 01:00 Urine Glucose Negative (Negative) 09/26/18 01:00 Urine Ascorbic Acid * (Negative) A 09/26/18 01:00 Vancomycin Trough 21.8 mcg/mL 09/27/18 05:35
--- NOTE | 2018-09-27 13:43 | PN ---
Subjective Date of Service: 09/27/18 Interval History: Pt notes his R hand is more swollen than it has been. He can not make a fist very easily, especially with the R 5th finger. He thinks the finger looks the same. He has moderate pain. Objective Active Medications: Buprenorphine/Naloxone (Suboxone 8-2 Mg Sl Tab*) 1 tab.sl SL TID [facility] Last Admin: 09/27/18 08:31 Dose: 1 tab.sl Gabapentin (Neurontin Cap(*)) 800 mg PO QID [facility] Last Admin: 09/27/18 13:25 Dose: 800 mg Heparin Sodium (Porcine) (Heparin Vial(*)) 5,000 units SUBCUT Q8HR [facility] Last Admin: 09/27/18 05:43 Dose: 5,000 units Vancomycin HCl 1,250 mg/ (Sodium Chloride) 250 mls @ 166.667 mls/hr IVPB Q12H [facility] Ceftriaxone Sodium 1 gm/ (Sodium Chloride) 50 mls @ 200 mls/hr IVPB Q24H [facility] Ibuprofen (Motrin Tab*) 600 mg PO Q6H PRN PRN Reason: PAIN Last Admin: 09/27/18 13:25 Dose: 600 mg Nicotine (Nicotine Inhaler*) 10 mg INH Q2H PRN PRN Reason: CRAVING Pharmacy Consult (Vancomycin Per Pharmacy*) 1 note FOLLOW UP .VANC PER PHARMACY [facility] Pharmacy Profile Note (Vancomycin Trough Check) 1 note FOLLOW UP 08 ONE Stop: 09/29/18 08:31 Varenicline (Chantix (Nf)) 0.5 mg PO BID [facility] Last Admin: 09/27/18 08:30 Dose: 0.5 mg Vital Signs - 8 hr 09/27/18 09/27/18 09/27/18 07:43 08:00 08:31 Temperature 97.7 F Pulse Rate 57 Respiratory 16 18 18 Rate Blood Pressure 97/45 (mmHg) O2 Sat by Pulse 100 Oximetry 09/27/18 09/27/18 09/27/18 11:10 13:24 13:25 Temperature Pulse Rate Respiratory 18 18 18 Rate Blood Pressure (mmHg) O2 Sat by Pulse Oximetry Oxygen Devices in Use Now: None Appearance: Young male sitting up in bed, NAD Eyes: No Scleral Icterus Ears/Nose/Mouth/Throat: Mucous Membranes Moist Respiratory: Symmetrical Chest Expansion and Respiratory Effort, Clear to Auscultation Cardiovascular: NL Sounds; No Murmurs; No JVD, RRR, No Edema Abdominal: NL Sounds; No Tenderness; No Distention Extremities: No Clubbing, Cyanosis Skin: - - all fingers are mildly erythematous, the R hand is moderately swollen , there is an area of what apperas to be necrosis on the medial aspect of the distal R 5th finger below the nail Neurological: Alert and Oriented x 3 Result Diagrams: 09/27/18 05:42 09/27/18 05:42 Additional Lab and Data: Laboratory Tests 09/25/18 09/25/18 09/26/18 21:09 21:09 01:00 Lactic Acid 0.4 L Calcium 9.4 AST 19 ALT 13 C-Reactive Protein 4.77 Total Protein 7.8 Urine Color Yellow Urine Ketones Trace A Urine Urobilinogen Positive A Microbiology and Other Data: Microbiology 09/26/18 00:50 Nasal Screen MRSA (PCR) - Final Nasal Mrsa Not Detected Diagnostic Imaging: RT hand X-ray earlier on 09/25: lucency inRT wrist ulnar aspect near hamate Assess/Plan/Problems-Billing Mr Garibay is a 32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 - Patient Problems (1) Cellulitis of right little finger Current Visit: Yes Status: Acute Code(s): L03.011 - CELLULITIS OF RIGHT FINGER SNOMED Code(s): 64246151 Comment: ID consult today for further recommendations for Abx therapy/ imaging etc. Orthopedics continues to follow. No surgical intervention at this time. Continue vanco for now and await further recommendations. 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 Continue gabapentin. (3) Hepatitis C infection Current Visit: Yes Status: Chronic Comment: Follow up outpatient for possible definitive treatment. (4) Opiate use Current Visit: Yes Status: Chronic Code(s): F11.90 - OPIOID USE, UNSPECIFIED , UNCOMPLICATED SNOMED Code(s): 260694844 Comment: Continue suboxone for opiate use disorder (5) Tobacco abuse Current Visit: Yes Status: Chronic Code(s): Z72.0 - TOBACCO USE SNOMED Code(s): 595659274 Comment: Encourage smoking cessation. Continue chantix. (6) Full code status Current Visit: Yes Status: Acute Code(s): Z78.9 - OTHER SPECIFIED HEALTH STATUS SNOMED Code(s): 111516920 Status and Disposition: .
[2018-09-27] MEDS: cefTRIAXone(*) 1 GM in NS 0.9% 50 ML* 50 ML IVPB SCH (14:20)
--- NOTE | 2018-09-27 17:25 | CONS ---
CONSULTATION REPORT: DATE OF CONSULT: 09/27/18 REQUESTING PHYSICIAN: . CONSULTING SERVICE: Infectious Disease. REASON FOR CONSULT: Right hand infection. 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 A culture taken as an outpatient on the.09/24/17 was no growth. He is stable on vancomycin here. CRP was minimally elevated at admission. I think there could be component of gram negative involved, this could also mainly an inflammatory noninfectious process. RECOMMENDATIONS: Continue vancomycin goal trough of 10 to 15. We will add ceftriaxone 1 g a day. Follow his finger exam here. 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 He was seen as an outpatient because there was some necrotic-appearing material. He was on Augmentin as an outpatient. Culture was taken with no growth. He had some fevers and chills at home, came to the hospital on the 09/25/18. Blood cultures were negative. Started on vancomycin, feels about the same. He thinks the swelling is worse, though it is diffusely worse in all his fingers, but this is what happens when he gets IV fluids. PAST MEDICAL HISTORY: 1. Thromboangiitis obliterans. 2. 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 MEDICATIONS: 1. Suboxone. 2. Gabapentin. 3. Heparin subcutaneous injection. 4. Ibuprofen. 5. Nicotine inhaler. 6. Vancomycin. 7. Chantix. ALLERGIES: No known drug allergies. SOCIAL HISTORY: Lives with a girlfriend. He is . He had past injections. FAMILY HISTORY: No recurrent infections. REVIEW OF SYSTEMS: All negative except as noted above to 14-point review. PHYSICAL EXAM: Vital Signs: Temperature 36.5, heart rate 57, respiratory rate 18, blood pressure 97/45. In general, he is awake, not in distress. Neurologic : He is oriented x3. Follows all commands. HEENT: There is no conjunctival hemorrhage. Oropharynx without lesions. Heart is regular rate and rhythm. No murmur, rubs or gallops. Lungs are clear to auscultation bilaterally. The right fifth finger distal area of superficial necrosis, no expressible fluid collection, diffuse edema, and more intense erythema there than on the other fingers. DIAGNOSTIC STUDIES/LAB DATA: Creatinine 0.8, ALT 12, CRP 4, white blood cell count 6, hemoglobin 14, platelets 136. Please see impression and recommendations outlined above, which I have discussed with Dr. Gibson. Thank you for asking me to see Mr. Richardson in consultation. [id number]/[facility] #: [id number] MTDD
[2018-09-27] MEDS: Ibuprofen TAB* 800 MG PO PRN (20:34)
[2018-09-27] MEDS: Acetaminophen TAB* 325 MG PO PRN (20:34)
[2018-09-27] MEDS ORDERED: Melatonin 3 MG TAB PO SCH (21:00)
[2018-09-28] MEDS: Acetaminophen TAB* 325 MG PO PRN ×3 (03:26→14:08)
[2018-09-28] MEDS: Heparin VIAL(*) 5000 UNITS/ML VIAL (FIVE THOUSAND) SUBCUT SCH ×2 (06:00→14:07)
[2018-09-28] MEDS: Ibuprofen TAB* 800 MG PO PRN ×2 (06:02→14:08)
[2018-09-28] MEDS: Vancomycin(*) 1,250 MG in NS 0.9% 250 ML* 250 ML IVPB SCH (09:45)
[2018-09-28] MEDS: Buprenorp/Nalox 8-2 MG SL TAB.SL SL SCH ×2 (09:47→14:08)
[2018-09-28] MEDS: Gabapentin CAP(*) 400 MG PO SCH ×2 (09:47→14:09)
[2018-09-28] MEDS: CMC:Varenicline (NF) 1 MG TAB PO SCH (10:00)
[2018-09-28 11:21] VITALS: BP 118/64
--- NOTE | 2018-09-28 12:11 | PN ---
Progress Note - Progress Note Date of Service: 09/28/18 SOAP: Subjective: [] Patient seen and examined at bedside. He feels well. Denies fever, chills, CP , SOB, dizziness, nausea. Reports improved ROM R hand. Objective: []General: Pleasant, NAD RUE: Right hand and digits are all with moderate to severe edema, all digits with red discoloration but per patient this is the standard appearance of his hands when swollen. Digits are not hot to touch and ROM is significantly improved from yesterday with full flexion and extension of all digits. Dorsum of the 5th digit has a nickel sized dusky dubose area with 1 mm unroofed blisters with serous drainage. Dusky area is tender to touch. No fluctuance or evidence of large fluid collection. Sensation is intact to light touch and capillary refill is less than two seconds distally throughout all digits. LUE thumb and index finger are equally edematous compared to contralateral side , without erythema and neurovascularly intact distally. Assessment: []Right hand cellulitis, tissue devitalization dorsum of 5th digit Hx thrombongitis obliterans Plan: []WBAT Continue IV abx - on vanco. Ceftriaxone also added by ID yesterday. Will continue to monitor cellulitis and dusky area while in house. No operations planned at this time. Follow up with Dr. Gibson next week Smoking cessation - on chantix Vital Signs Temp 98.8 F 09/28/18 11:07 Pulse 60 09/28/18 11:07 Resp 20 09/28/18 12:00 BP 118/64 09/28/18 11:07 Pulse Ox 97 09/28/18 11:07 Intake & Output 09/27/18 09/28/18 09/28/18 18:59 06:59 18:59 Intake Total 1428 1140 1220 Balance 1428 1140 1220 Intake: IV Fluids 268 300 ABX - VANCOMYCIN 255 285 NS (0.9%) 13 15 Oral 1928 710 5109 Other: Estimated Void Large Medium Date of Last Bowel 09/27/18 Movement # Bowel Movements 1 Estimated Stool Amount Medium # Voids 3 3 Laboratory Last Values WBC 6.1 10^3/ul (3.5-10.8) 09/27/18 05:42 RBC 4.82 10^6/ul (4.00-5.40) 09/27/18 05:42 Hgb 14.3 g/dl (14.0-18.0) 09/27/18 05:42 Hct 43 % (42-52) 09/27/18 05:42 MCV 88 fL (80-94) 09/27/18 05:42 MCH 30 pg (27-31) 09/27/18 05:42 MCHC 34 g/dl (31-36) 09/27/18 05:42 RDW 17 % (10.5-15) H 09/27/18 05:42 Plt Count 136 10^3/ul (150-450) L 09/27/18 05:42 MPV 8.8 fL (7.4-10.4) 09/27/18 05:42 Neut % (Auto) 53.2 % 09/27/18 05:42 Lymph % (Auto) 33.7 % 09/27/18 05:42 [place] % (Auto) 6.7 % 09/27/18 05:42 Eos % (Auto) 5.5 % 09/27/18 05:42 Baso % (Auto) 0.9 % 09/27/18 05:42 Absolute Neuts (auto) 3.3 10^3/ul (1.5-7.7) 09/27/18 05:42 Absolute Lymphs (auto) 2.1 10^3/ul (1.0-4.8) 09/27/18 05:42 Absolute Monos (auto) 0.4 10^3/ul (0-0.8) 09/27/18 05:42 Absolute Eos (auto) 0.3 10^3/ul (0-0.6) 09/27/18 05:42 Absolute Basos (auto) 0.1 10^3/ul (0-0.2) 09/27/18 05:42 Absolute Nucleated RBC 0 10^3/ul 09/27/18 05:42 Nucleated RBC % 0.1 09/27/18 05:42 INR (Anticoag Therapy) 0.87 (0.77-1.02) 09/27/18 05:42 APTT 33.0 seconds (26.0-36.3) 09/27/18 05:42 Sodium 140 mmol/L (135-145) 09/27/18 05:42 Potassium 3.8 mmol/L (3.5-5.0) 09/27/18 05:42 Chloride 105 mmol/L (101-111) 09/27/18 05:42 Carbon Dioxide 29 mmol/L (22-32) 09/27/18 05:42 Anion Gap 6 mmol/L (2-11) 09/27/18 05:42 BUN 12 mg/dL (6-24) 09/27/18 05:42 Creatinine 0.86 mg/dL (0.67-1.17) 09/27/18 05:42 Est GFR ( Amer) 125.5 (>60) 09/27/18 05:42 Est GFR (Non-Af Amer) 103.7 (>60) 09/27/18 05:42 BUN/Creatinine Ratio 14.0 (8-20) 09/27/18 05:42 Glucose 108 mg/dL (70-100) H 09/27/18 05:42 Lactic Acid 1.6 mmol/L (0.5-2.0) 09/26/18 01:53 Calcium 8.8 mg/dL (8.6-10.3) 09/27/18 05:42 Phosphorus 4.5 mg/dL (2.5-5.0) 09/27/18 05:42 Magnesium 2.1 mg/dL (1.9-2.7) 09/27/18 05:42 Total Bilirubin 0.70 mg/dL (0.2-1.0) 09/27/18 05:42 AST 16 U/L (13-39) 09/27/18 05:42 ALT 12 U/L (7-52) 09/27/18 05:42 Alkaline Phosphatase 69 U/L (34-104) 09/27/18 05:42 C-Reactive Protein 4.77 mg/L (<8.01) 09/25/18 21:09 Total Protein 6.7 g/dL (6.4-8.9) 09/27/18 05:42 Albumin 3.8 g/dL (3.2-5.2) 09/27/18 05:42 Globulin 2.9 g/dL (2-4) 09/27/18 05:42 Albumin/Globulin Ratio 1.3 (1-3) 09/27/18 05:42 Urine Color Yellow 09/26/18 01:00 Urine Appearance Cloudy 09/26/18 01:00 Urine pH 5.0 (5-9) 09/26/18 01:00 Ur Specific [place] 1.027 (1.010-1.030) 09/26/18 01:00 Urine Protein Negative (Negative) 09/26/18 01:00 Urine Ketones Trace (Negative) A 09/26/18 01:00 Urine Blood Negative (Negative) 09/26/18 01:00 Urine Nitrate Negative (Negative) 09/26/18 01:00 Urine Bilirubin Negative (Negative) 09/26/18 01:00 Urine Urobilinogen Positive (Negative) A 09/26/18 01:00 Ur Leukocyte Esterase Negative (Negative) 09/26/18 01:00 Urine Glucose Negative (Negative) 09/26/18 01:00 Urine Ascorbic Acid * (Negative) A 09/26/18 01:00 Vancomycin Trough 12.4 mcg/mL 09/28/18 08:26
[2018-09-28] MEDS: cefTRIAXone(*) 1 GM in NS 0.9% 50 ML* 50 ML IVPB SCH (14:07)
--- NOTE | 2018-09-28 14:28 | PN ---
Subjective Date of Service: 09/28/18 Interval History: Pt is feeling well. He notes less swelling to the R hand, no significant change in the erythema of the 5th R finger. Objective Active Medications: Acetaminophen (Tylenol Tab*) 650 mg PO Q4H PRN PRN Reason: FEVER/HEADACHE Last Admin: 09/28/18 14:08 Dose: 650 mg Buprenorphine/Naloxone (Suboxone 8-2 Mg Sl Tab*) 1 tab.sl SL TID [facility] Last Admin: 09/28/18 14:08 Dose: 1 tab.sl Gabapentin (Neurontin Cap(*)) 800 mg PO QID [facility] Last Admin: 09/28/18 14:09 Dose: 800 mg Heparin Sodium (Porcine) (Heparin Vial(*)) 5,000 units SUBCUT Q8HR [facility] Last Admin: 09/28/18 14:07 Dose: 5,000 units Ceftriaxone Sodium 1 gm/ (Sodium Chloride) 50 mls @ 200 mls/hr IVPB Q24H [facility] Last Admin: 09/28/18 14:07 Dose: 200 mls/hr Ibuprofen (Motrin Tab*) 800 mg PO Q8H PRN PRN Reason: PAIN Last Admin: 09/28/18 14:08 Dose: 800 mg Melatonin (Melatonin) 3 mg PO BEDTIME [facility]; Protocol Last Admin: 09/27/18 23:25 Dose: 3 mg Nicotine (Nicotine Inhaler*) 10 mg INH Q2H PRN PRN Reason: CRAVING Last Admin: 09/27/18 20:36 Dose: 10 mg Varenicline (Chantix (Nf)) 0.5 mg PO BID [facility] Last Admin: 09/28/18 10:00 Dose: 0.5 mg Vital Signs - 8 hr 09/28/18 09/28/18 09/28/18 07:07 09:47 11:07 Temperature 97.6 F 98.8 F Pulse Rate 55 60 Respiratory 16 20 16 Rate Blood Pressure 100/54 118/64 (mmHg) O2 Sat by Pulse 97 97 Oximetry 09/28/18 09/28/18 09/28/18 12:00 14:08 14:09 Temperature Pulse Rate Respiratory 20 20 18 Rate Blood Pressure (mmHg) O2 Sat by Pulse Oximetry Oxygen Devices in Use Now: None Appearance: Young male sitting on the edge of the bed, NAD Eyes: No Scleral Icterus Ears/Nose/Mouth/Throat: Mucous Membranes Moist Respiratory: Symmetrical Chest Expansion and Respiratory Effort, Clear to Auscultation Cardiovascular: NL Sounds; No Murmurs; No JVD, RRR, No Edema Abdominal: NL Sounds; No Tenderness; No Distention Extremities: No Clubbing, Cyanosis Skin: - - area of devitalized tissue on the R 5th finger unchanged, erythema still present on R 5th finger Neurological: Alert and Oriented x 3 Result Diagrams: 09/27/18 05:42 09/27/18 05:42 Additional Lab and Data: Laboratory Tests 09/25/18 09/25/18 09/26/18 21:09 21:09 01:00 Lactic Acid 0.4 L Calcium 9.4 AST 19 ALT 13 C-Reactive Protein 4.77 Total Protein 7.8 Urine Color Yellow Urine Ketones Trace A Urine Urobilinogen Positive A Microbiology and Other Data: Microbiology 09/26/18 00:50 Nasal Screen MRSA (PCR) - Final Nasal Mrsa Not Detected Diagnostic Imaging: RT hand X-ray earlier on 09/25: lucency inRT wrist ulnar aspect near hamate Assess/Plan/Problems-Billing Mr Garibay is a 32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 - Patient Problems (1) Cellulitis of right little finger Current Visit: Yes Status: Acute Code(s): L03.011 - CELLULITIS OF RIGHT FINGER SNOMED Code(s): 80342191 Comment: Ceftriaxone added to vancomycin yesterday. No significant change in appearance of the finger. Will discuss oral Abx therapy with Dr. Meeks as I believe the patient can be discharged home today to follow up with Dr. Gibson as an outpatient. 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 Continue gabapentin. (3) Hepatitis C infection Current Visit: Yes Status: Chronic Comment: Follow up outpatient for possible definitive treatment. (4) Opiate use Current Visit: Yes Status: Chronic Code(s): F11.90 - OPIOID USE, UNSPECIFIED , UNCOMPLICATED SNOMED Code(s): 570243961 Comment: Continue suboxone for opiate use disorder (5) Tobacco abuse Current Visit: Yes Status: Chronic Code(s): Z72.0 - TOBACCO USE SNOMED Code(s): 330494250 Comment: Encourage smoking cessation. Continue new pt requests an Rx for this. (6) Full code status Current Visit: Yes Status: Acute Code(s): Z78.9 - OTHER SPECIFIED HEALTH STATUS SNOMED Code(s): 673459863 Status and Disposition: d/c home
--- NOTE | 2018-09-28 20:08 | DS ---
CC: Adriana Piedra NP at [facility] * DISCHARGE SUMMARY: DATE OF ADMISSION: 09/25/18 DATE OF DISCHARGE: 09/28/18 PRIMARY CARE PROVIDER: To be established with Adriana Piedra NP at [facility]. PRINCIPAL DIAGNOSIS: Right 5th finger traumatic injury and associated cellulitis. SECONDARY DIAGNOSES: 1. Buerger's disease. 2. Tobacco abuse. 3. Opiate use disorder. DISCHARGE MEDICATIONS: 1. Gabapentin 800 mg p.o. 4 times a day. 2. Suboxone 8/2 one tab sublingual daily. 3. Chantix 0.5 mg p.o. b.i.d. x7 doses, then 1 mg p.o. b.i.d. x10 weeks. 4. Melatonin 3 mg p.o. q.h.s. 5. Ibuprofen 800 mg p.o. q.8 hours p.r.n. pain. 6. Clindamycin 300 mg p.o. t.i.d. x7 days. HOSPITAL COURSE: Mr. Richardson is a 32-year-old male with a history of tobacco abuse and Buerger's disease who presented to the emergency room with complaints of injury to the right 5th finger. The patient was admitted for concern of cellulitis involving the right 5th finger. The patient was seen in consultation by Orthopedics for an area of devitalized tissue just below the nail bed. Ultimately, it was determined the patient will not need any surgical intervention. The patient was also seen in consultation by Dr. Meeks from Infectious Disease for health and antibiotic choice. The patient has been afebrile. He has not had a leukocytosis. At this point, it is felt that the patient can be discharged on clindamycin 300 mg p.o. t.i.d. x7 more days. The patient will need to follow up with Dr. Gibson in the office next week. In terms of the patient's Buerger's disease, the patient has been encouraged to stop smoking. He was initiated on Chantix and at this point wishes to continue with this. Prescription has been sent to the [facility] for him. The patient will be establishing with Adriana Piedra NP at [facility] tomorrow. Continued encouragement will be needed, though the patient does seem motivated at this point. FOLLOWUP CONCERNS: The patient is being discharged home today, 09/28/18. ACTIVITY: As tolerated. DIET: Regular. CONDITION ON DISCHARGE: Stable. TIME SPENT: Thirty five minutes were spent discharging this patient. [id number]/CPS #: [id number] [id number]
[2018-09-29] MEDS ORDERED: Vancomycin Trough Check NOTE FOLLOW UP ONE (08:30)
[2018-09-29 18:07] LABS: Hepatitis C Genotype 3 (Undetected)
== END 2018-09-28 16:57 | disposition home or self-care (01) | DRG 603 ==
LOC: ED 19:38 → SSU 22:46
PROVIDERS: ADMIT Internal Medicine; ATTEND Hospitalist
DX: L03.011 Cellulitis of right finger (principal); I73.1 Thromboangiitis obliterans [Buerger's disease]; F17.210 Nicotine dependence, cigarettes, uncomplicated; F11.90 Opioid use, unspecified, uncomplicated; S67.196A Crushing injury of right little finger, initial encounter; W23.1XXA Caught, crushed, jammed, or pinched between stationary objects, initial encounter; Y92.9 Unspecified place or not applicable; Z89.022 Acquired absence of left finger(s); Z82.5 Family history of asthma and other chronic lower respiratory diseases; Z81.8 Family history of other mental and behavioral disorders; Z86.19 Personal history of other infectious and parasitic diseases; Z79.899 Other long term (current) drug therapy
CPT/HCPCS: 36415; 80053; 80202; 81003; 83605; 83735; 84100; 85025; 85610; 85730; 86140; 87040; 87522; 87641; 87902; 99284; 99406; A9270-GY; J0696; J1644; J1885; J3370

== ENCOUNTER 2019-07-23 15:00 | Emergency (ER) | payer OTHER ==
[2019-07-23 15:09] VITALS: BP 135/92
--- NOTE | 2019-07-23 15:17 | ED ---
Skin Complaint - HPI Summary HPI Summary: Seen in at 15:08 This patient is a 33 year old M presenting to [facility] accompanied by children with a chief complaint of rash since a couple days ago. Pt has a rash over his R arm, and he has been using aquaphor which has improved the symptoms. Brother w similar symptoms. - History of Current Complaint Chief Complaint: EDRashSkinAbscess Time Seen by Provider: 07/23/19 15:05 Stated Complaint: "RASH PER PT" Hx Obtained From: Patient Onset/Duration: Started Days Ago, Resolved Skin Exposure Onset/Duration: Days Ago Timing: Lasting Days Current Severity: None Pain Intensity: 0 Pain Scale Used: 0-10 Numeric Skin Location: Arm Character: Redness Aggravating Symptom(s): Nothing Alleviating Symptom(s): Other: - aquaphor Associated Signs & Symptoms: Rash - Additional Pertinent History Primary Care Physician: DOMITILA - Allergy/Home Medications Allergies/Adverse Reactions: Allergies Allergy/AdvReac Type Severity Reaction Status Date / Time No Known Allergies Allergy Verified 07/23/19 15:10 PMH/Surg Hx/FS Hx/Imm Hx Endocrine/Hematology History: Denies: Hx Anticoagulant Therapy, Hx Blood Disorders, Hx Diabetes, Hx Thyroid Disease, Hx Unexplained Bleeding Cardiovascular History: 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 Denies: Hx Hypertension Respiratory History: Denies: Hx Asthma, Hx Chronic Obstructive Pulmonary Disease (COPD) GI History: Denies: Hx Ulcer History: Denies: Hx Renal Disease Musculoskeletal History: Denies: Hx Arthritis Sensory History: Reports: Hx Contacts or Glasses Denies: Hx Hearing Aid Opthamlomology History: Reports: Hx Contacts or Glasses Psychiatric History: Reports: Hx Anxiety, Hx Substance Abuse - Surgical History Surgery Procedure, Year, and Place: pilonidal cyst 2008~ Hx Anesthesia Reactions: No Infectious Disease History: No Infectious Disease History: Reports: Hx Hepatitis, 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 Denies: Hx Clostridium Difficile, Hx Human Immunodeficiency Virus (HIV), Hx Shingles, Hx Tuberculosis, Traveled Outside the [place] in Last 30 Days - Family History Known Family History: Negative: Hypertension - Social History Alcohol Use: None Hx Substance Use: Yes - currently takes suboxone Substance Use Type: Reports: Cocaine Substance Use Comment - Amount & Last Used: week ago Smoking Status (MU): Heavy Every Day Tobacco Smoker Type: Cigarettes Length of Time of Smoking/Using Tobacco: 19 years Have You Smoked in the Last Year: Yes Review of Systems Negative: Fever Positive: Rash All Other Systems Reviewed And Are Negative: Yes Physical Exam - Summary Physical Exam Summary: Constitutional: Well-developed, Well-nourished, Alert. (-) Distressed Skin: Warm, Dry, linear excoriations to bilateral forearms HENT: Normocephalic; Atraumatic Eyes: Conjunctiva normal Neck: Musculoskeletal ROM normal neck. (-) JVD, (-) Stridor, (-) Nuchal rigidity Cardio: Rhythm regular, rate normal, Heart sounds normal; Intact distal pulses; Radial pulses are 2+ and symmetric. (-) Murmur Pulmonary/Chest wall: Effort normal. (-) Respiratory distress, (-) Wheezes, (-) Rales Abd: Soft, (-) tenderness, (-) Distension, (-) Guarding, (-) Rebound Musculoskeletal: (-) Edema Lymph: (-) Cervical adenopathy Neuro: Alert, Oriented x3 Psych: Mood and affect Normal Triage Information Reviewed: Yes Vital Signs On Initial Exam: Initial Vitals Temp Pulse Resp BP Pulse Ox 97.7 F 95 16 135/92 97 07/23/19 15:04 07/23/19 15:04 07/23/19 15:04 07/23/19 15:04 07/23/19 15:04 Vital Signs Reviewed: Yes Procedures - Sedation Patient Received Moderate/Deep Sedation with Procedure: No Diagnostics - Vital Signs Vital Signs Temp Pulse Resp BP Pulse Ox 07/23/19 15:04 97.7 F 95 16 135/92 97 - Laboratory Lab Statement: Any lab studies that have been ordered have been reviewed, and results considered in the medical decision making process. Course/Dx - Course Course Of Treatment: 33 y/o male p/w rash c/w scabies. Given permethrin and advised to wash and dry clothes/bedding on high heat. - Diagnoses Provider Diagnoses: Scabies Discharge ED - Sign-Out/Discharge Documenting (check all that apply): Patient Departure - Discharge - Discharge Plan Condition: Stable Disposition: HOME Prescriptions: Permethrin 5% CREAM* 1 applic TOPICAL SEE INSTRUCTIONS 1 Days #1 tube Patient Education Materials: Scabies (ED) Referrals: Roberta Martinez MD [Primary Care Provider] - Additional Instructions: Scabies: Thoroughly massage cream (30 g for average adult) from head to soles of feet; leave on for 8 to 14 hours before removing (shower or bath); for infants and the elderly, also apply on the hairline, neck, scalp, moravian, and forehead; may repeat if living mites are observed 14 days after first treatment ; one application is generally curative. In some cases, household members and close contacts of a person with symptoms need treatment for scabies, even if there are no symptoms, to avoid a repeating cycle of infection. A healthcare provider can help to decide if this is necessary, depending upon the individual situation. Although scabies is less frequently spread by touching the clothing or bedsheets of an infected person, it is still a good idea to wash or isolate any clothing, bedding, towels, pajamas, underwear, or stuffed animals that the person has touched within three days before treatment. It is not usually necessary to wash other items. Reasonable options for eliminating mites from these items include placing them in plastic bags for at least three days, machine washing and then ironing or drying in an electric dryer on the hot setting, or dry cleaning. https://www.[employer].Buyt.In/contents/pwaqmul-gyrena-qvs-basics?search=scabies& zdbntJgf=2509&source=see_link#H9 - Billing Disposition and Condition Condition: STABLE Disposition: Home - Attestation Statements Document Initiated by Pino: Yes Documenting Scribe: Bindu Gomez Provider For Whom Pino is Documenting (Include Credential): Malia Lutz MD Scribe Attestation: Bindu Cervantes, scribed for Malia Lutz MD on 07/23/19 at 1601. Scribe Documentation Reviewed: Yes Provider Attestation: The documentation as recorded by the Bindu guerra accurately reflects the service I personally performed and the decisions made by , Malia Lutz MD Status of Scribe Document: Viewed
== END 2019-07-23 15:20 | disposition home or self-care (01) ==
LOC: ED 15:00
DX: B86 Scabies (principal); F17.210 Nicotine dependence, cigarettes, uncomplicated
CPT/HCPCS: 99282

== ENCOUNTER 2019-08-18 17:21 | Emergency (ER) | payer OTHER ==
--- NOTE | 2019-08-18 18:18 | ED ---
GI/ HPI - HPI Summary HPI Summary: 33 year old male presents with groin mass for past 5 days. He started to notice swelling to the area 5 days ago. He states that it is worse with standing. He states that does lift things at work occasionally. Denies any testicular pain currently. No urinary symptoms. No rash. No fevers. No abdominal pain. No nausea and vomiting. he has never had this before. 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 Denies: Hx Hypertension Respiratory History: Denies: Hx Asthma, Hx Chronic Obstructive Pulmonary Disease (COPD) GI History: Denies: Hx Ulcer History: Denies: Hx Renal Disease Musculoskeletal History: Denies: Hx Arthritis Sensory History: Reports: Hx Contacts or Glasses Denies: Hx Hearing Aid Opthamlomology History: Reports: Hx Contacts or Glasses Psychiatric History: Reports: Hx Anxiety, Hx Substance Abuse - Surgical History Surgery Procedure, Year, and Place: pilonidal cyst 2007~ Hx Anesthesia Reactions: No Infectious Disease History: No Infectious Disease History: Reports: Hx Hepatitis, 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 Denies: Hx Clostridium Difficile, Hx Human Immunodeficiency Virus (HIV), Hx Shingles, Hx Tuberculosis, Traveled Outside the [place] in Last 30 Days - Family History Known Family History: Negative: Hypertension - Social History Alcohol Use: None Hx Substance Use: Yes - currently takes suboxone Substance Use Type: Reports: None Substance Use Comment - Amount & Last Used: denies Smoking Status (MU): Heavy Every Day Tobacco Smoker Type: Cigarettes Length of Time of Smoking/Using Tobacco: 19 years Have You Smoked in the Last Year: Yes Review of Systems Negative: Fever Negative: Chest Pain Negative: Shortness Of Breath Positive: other - groin mass All Other Systems Reviewed And Are Negative: Yes Physical Exam Triage Information Reviewed: Yes Vital Signs On Initial Exam: Initial Vitals Temp Pulse Resp BP Pulse Ox 97.4 F 92 18 117/97 97 08/18/19 17:31 08/18/19 17:31 08/18/19 17:31 08/18/19 17:31 08/18/19 17:31 Vital Signs Reviewed: Yes Appearance: Positive: Well-Appearing Skin: Positive: Warm, Dry Head/Face: Positive: Normal Head/Face Inspection Eyes: Positive: Normal, Conjunctiva Clear ENT: Positive: Pharynx normal Respiratory/Lung Sounds: Positive: Clear to Auscultation, Breath Sounds Present Cardiovascular: Positive: Normal, RRR Abdomen Description: Positive: Nontender, Soft, Other: - right inguinal mass felt Bowel Sounds: Positive: Present Musculoskeletal: Positive: Normal Neurological: Positive: Normal Psychiatric: Positive: Normal Procedures - Sedation Patient Received Moderate/Deep Sedation with Procedure: No Diagnostics - Vital Signs Vital Signs Temp Pulse Resp BP Pulse Ox 08/18/19 17:31 97.4 F 92 18 117/97 97 - Laboratory Lab Statement: Any lab studies that have been ordered have been reviewed, and results considered in the medical decision making process. GIGU Course/Dx - Course Course Of Treatment: 33 year old male presents with groin mass for past 5 days. He started to notice swelling to the area 5 days ago. He states that it is worse with standing. He states that does lift things at work occasionally. Denies any testicular pain currently. No urinary symptoms. No rash. No fevers. No abdominal pain. No nausea and vomiting. he has never had this before. On exam has right inguinal mass. Feels consistent with a hernia. will have follow-up with surgery. Patient understands and agrees with plan. - Diagnoses Differential Diagnoses - Male: Orchitis, Urinary Tract Infection, Other - hernia Provider Diagnoses: Inguinal hernia Discharge ED - Sign-Out/Discharge Documenting (check all that apply): Patient Departure - Discharge Plan Condition: Good Disposition: HOME Patient Education Materials: Inguinal Hernia (ED) Referrals: Roberta Martinez MD [Primary Care Provider] - Cale Graves MD [Medical Doctor] - Additional Instructions: avoid lifting heavy objects follow up with surgery or primary Return to ED if develop any new or worsening symptoms - Billing Disposition and Condition Condition: GOOD Disposition: Home
[2019-08-18 18:48] VITALS: BP 126/83
== END 2019-08-18 18:32 | disposition home or self-care (01) ==
LOC: ED 17:21
DX: K40.90 Unilateral inguinal hernia, without obstruction or gangrene, not specified as recurrent (principal); F41.9 Anxiety disorder, unspecified; F17.210 Nicotine dependence, cigarettes, uncomplicated
CPT/HCPCS: 99282

== ENCOUNTER 2019-08-20 20:59 | Emergency (ER) | payer OTHER ==
[2019-08-20] MEDS ORDERED: NS 0.9% 1000 ML** 1,000 ML IV ONE (21:40)
[2019-08-20] MEDS ORDERED: diPHENhydraMINE IV* 50 MG/ML 1 ml VIAL (BENADRYL) SLOW PUSH ONE (21:40)
[2019-08-20] MEDS ORDERED: PROCHLORPERAZINE INJ 5 MG/ML 2 ML VIAL IV ONE (21:40)
--- NOTE | 2019-08-20 22:18 | ED ---
GI/ HPI - HPI Summary HPI Summary: 33 year old male presents with right groin pain and headache for the past couple days. He states that he masses in his right groin has been getting bigger. He admits to nausea and vomiting. Also states he started developing pressure behind his right eye. He states he has a headache. No fevers. No neck stiffness. He admits to some photophobia. Denies any history of migraines. He admits to sinus congestion. Has been sick with a cold recently. no chest pain or shortness breath. No cough. 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 Denies: Hx Hypertension Respiratory History: Denies: Hx Asthma, Hx Chronic Obstructive Pulmonary Disease (COPD) GI History: Denies: Hx Ulcer History: Denies: Hx Renal Disease Musculoskeletal History: Denies: Hx Arthritis Sensory History: Reports: Hx Contacts or Glasses Denies: Hx Hearing Aid Opthamlomology History: Reports: Hx Contacts or Glasses Psychiatric History: Reports: Hx Anxiety, Hx Substance Abuse - Surgical History Surgery Procedure, Year, and Place: pilonidal cyst 2007~ Hx Anesthesia Reactions: No Infectious Disease History: Yes Infectious Disease History: Reports: Hx Hepatitis, 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 Denies: Hx Clostridium Difficile, Hx Human Immunodeficiency Virus (HIV), Hx Shingles, Hx Tuberculosis, Traveled Outside the [place] in Last 30 Days - Family History Known Family History: Negative: Hypertension - Social History Alcohol Use: None Hx Substance Use: Yes - currently takes suboxone Substance Use Type: Reports: None Substance Use Comment - Amount & Last Used: denies Smoking Status (MU): Heavy Every Day Tobacco Smoker Type: Cigarettes Length of Time of Smoking/Using Tobacco: 19 years Have You Smoked in the Last Year: Yes Review of Systems Negative: Fever Positive: Nasal Discharge Negative: Chest Pain Negative: Shortness Of Breath Positive: Nausea, Other - right groin mass. Negative: Vomiting Positive: Headache All Other Systems Reviewed And Are Negative: Yes Physical Exam Triage Information Reviewed: Yes Vital Signs On Initial Exam: Initial Vitals Temp Pulse Resp BP Pulse Ox 97.5 F 78 16 122/86 98 08/20/19 21:00 08/20/19 21:00 08/20/19 21:00 08/20/19 21:00 08/20/19 21:00 Vital Signs Reviewed: Yes Appearance: Positive: Well-Appearing Skin: Positive: Warm, Dry Head/Face: Positive: Normal Head/Face Inspection Eyes: Positive: Normal, EOMI, MAILE, Conjunctiva Clear ENT: Positive: Pharynx normal, Nasal congestion, TMs normal, Sinus tenderness Respiratory/Lung Sounds: Positive: Clear to Auscultation, Breath Sounds Present Cardiovascular: Positive: Normal, RRR Abdomen Description: Positive: Soft, Other: - tenderness right groin with mass felt Bowel Sounds: Positive: Present Musculoskeletal: Positive: Normal Neurological: Positive: Sensory/Motor Intact, Alert, Oriented to Person Place, Time, CN Intact II-III, Finger to Nose Psychiatric: Positive: Normal Procedures - Sedation Patient Received Moderate/Deep Sedation with Procedure: No Diagnostics - Vital Signs Vital Signs Temp Pulse Resp BP Pulse Ox 08/20/19 21:00 97.5 F 78 16 122/86 98 - Laboratory Result Diagrams: 08/20/19 22:30 08/20/19 22:30 Lab Statement: Any lab studies that have been ordered have been reviewed, and results considered in the medical decision making process. - CT brain CT Interpretation Completed By: Radiologist Summary of CT Findings: IMPRESSION: No acute intracranial pathology is appreciated. Extensive bilateral sinusitis changes, with air-fluid levels present. - Ultrasound No standard instances Ultrasound Interpretation Completed By: Radiologist Summary of Ultrasound Findings: A prominent, inflamed lymph node (2.7 x 2.1 x 2.7 cm size) is noted. Re-Evaluation - Re-Evaluation First Eval Re-Evaluation Time: 23:27 Comment: headache still present GIGU Course/Dx - Course Course Of Treatment: 33 year old male presents with right groin pain and headache for the past couple days. He states that he masses in his right groin has been getting bigger. he states it is tender. He admits to nausea and vomiting. Also states he started developing pressure behind his right eye. He states he has a headache. No fevers. No neck stiffness. He admits to some photophobia. Denies any history of migraines. He admits to sinus congestion. Has been sick with a cold recently. no chest pain or shortness breath. No cough. on exam has normal neuro exam. has sinus congestion. sinus tenderness noted. has tenderness and mass in right groin. u/s shows a lymph node. CT shows normal brain and sinusitis. will treat with augmentin. told follow up with primary about lymphadenopathy. patient understand and agrees with plan - Diagnoses Differential Diagnoses - Male: Other - hernia, sinusitis, migraine Provider Diagnoses: Lymphadenopathy, Headache, Sinusitis Discharge ED - Sign-Out/Discharge Documenting (check all that apply): Patient Departure - Discharge Plan Condition: Good Disposition: HOME Prescriptions: Amoxicillin/Clavulanate TAB* [Augmentin TAB 875*] 875 mg PO BID #19 tab Patient Education Materials: Sinusitis (ED), Lymphadenopathy (ED) Referrals: Roberta Martinez MD [Primary Care Provider] - Additional Instructions: Take antibiotic twice a day for 10 days Use saline spray in nose as much as needed can use sudafed twice a day take use tyenlol or ibuprofen every 6 horus for pain Follow up with primary care within 5 days about swollen lymph node Return to ED with any new or worsening symptoms - Billing Disposition and Condition Condition: GOOD Disposition: Home
[2019-08-20 22:44] LABS: ABS Eosinophils 0.3 10^3/ul (0-0.6); ABS Lymphocytes 1.9 10^3/ul (1.0-4.8); ABS Monocytes 0.6 10^3/ul (0-0.8); ABS Neutrophils 7.2 10^3/ul (1.5-7.7); Eosinophil % 3.4 %; Hematocrit 47 % (42-52); Hemoglobin 16.7 g/dL (14.0-18.0); Lymphocyte % 18.8 %; Mean Corpuscular HGB Conc 35 g/dL (31-36); Mean Corpuscular Hemoglobin 32 pg (27-31); Mean Corpuscular Volume 91 fL (80-94); Mean Platelet Volume 8.2 fL (7.4-10.4); Platelet Count 173 10^3/uL (150-450); Red Blood Count 5.22 10^6 /uL (4.18-5.48); Red Cell Distribution Width 14 % (10-15); White Blood Count 10.2 10^3/uL (3.5-10.8)
[2019-08-20 22:52] LABS: Albumin 5.5 g/dL (3.2-5.2); Anion Gap 9 mmol/L (2-11); CO2 Carbon Dioxide 33 mmol/L (22-32); Calcium 10.4 mg/dL (8.6-10.3); Chloride 95 mmol/L (101-111); Magnesium 1.9 mg/dL (1.9-2.7); Potassium 3.7 mmol/L (3.5-5.0); Sodium 137 mmol/L (135-145)
[2019-08-20 22:58] LABS: ALT 12 U/L (7-52); AST 20 U/L (13-39); Albumin/Globulin Ratio 1.5 (1-3); Alkaline Phosphatase 90 U/L (34-104); Blood Urea Nitrogen 18 mg/dL (6-24); C Reactive Protein 30.97 mg/L (<8.01); EGFR African American 118.3 (>60); EGFR Non-African American 97.8 (>60); Globulin 3.6 g/dL (2-4); Glucose 95 mg/dL (70-100); Total Protein 9.1 g/dL (6.4-8.9)
[2019-08-20] MEDS ORDERED: Ketorolac INJ* 30 MG/ML 1 ML VIAL IV PUSH ONE (23:27)
[2019-08-20] MEDS ORDERED: Pseudoephedrine TAB* 60 MG PO ONE (23:50)
[2019-08-20] MEDS ORDERED: Amoxicillin/Clavulanate TAB* 875 MG PO ONE (23:50)
[2019-08-21 00:13] VITALS: BP 118/65
== END 2019-08-21 00:11 | disposition home or self-care (01) ==
LOC: ED 20:59
DX: R59.0 Localized enlarged lymph nodes (principal); R51 Headache; J32.9 Chronic sinusitis, unspecified; R11.2 Nausea with vomiting, unspecified; F17.210 Nicotine dependence, cigarettes, uncomplicated
CPT/HCPCS: 36415; 70450; 76705; 80053; 83690; 83735; 85025; 86140; 96361; 96374; 96375; 99283; A9270-GY; J0780; J1200; J1885